=== PATIENT | female | born 1955 | race Caucasian/White ===

== ENCOUNTER → 2017-12-13 13:37 | Outpatient (CLI) | payer OTHER, SELFPAY ==
--- NOTE | 2017-12-13 | DI.MRI.S_ITS ---
PROCEDURE: MR SHOULDER LT WO CON INDICATIONS: LEFT SHOULDER PAIN TECHNIQUE: Noncontrast oblique coronal T2 fast spin echo with fat saturation, oblique sagittal T1 spin echo and T2 fast spin echo with fat saturation, axial T1 spin echo and T2 fast spin echo with fat saturation through the shoulder. COMPARISON: [facility] [place], CR, XR SHOULDER 2+ VIEWS LEFT, 11/15/2017, 15:53. FINDINGS: Image quality: Excellent. Rotator cuff: There is mild T2 signal elevation within the anterior, mid, and posterior supraspinatus tendon at the humeral insertion site, indicating tendinopathy. Small region of superimposed fluid signal intensity involves the bursal surface of the mid/anterior supraspinatus tendon at the humeral insertion site. Subscapularis and teres minor tendons are intact. The supraspinatus, infraspinatus, and subscapularis tendons appear intact throughout. Sagittal images demonstrate no muscle atrophy. Bones and bursae: No bone marrow contusions nor acute fractures. Indentation of the posterior lateral humeral head is present, compatible with remote Hill-Sachs deformity. There is mild acromioclavicular joint degeneration. The acromion demonstrates conventional anatomy, without an os acromiale. A small amount of subacromial-subdeltoid or subcoracoid bursal fluid is present. Capsule and soft tissues: In the absence of intra-articular contrast, the labrum and glenohumeral ligaments appear intact. The long head of the biceps tendon demonstrates normal location and morphology. The rotator interval appears normal, without fibrosis. The coracohumeral ligament is normal in thickness. There is a small glenohumeral joint effusion. Within the medial aspect of the subcoracoid recess, there are 2 adjacent loose bodies measuring roughly 6 mm diameter. IMPRESSION: 1. Remote Hill-Sachs deformity of the humeral head, consistent with remote anteroinferior shoulder dislocation. 2. Supraspinatus tendinopathy with low-grade superimposed partial-thickness bursal surface tearing. No full-thickness rotator cuff tear. 3. Acromioclavicular joint osteoarthritis. 4. Mild subacromial bursitis. 5. Loose bodies within the medial aspect of the subcoracoid recess. Dictated by: Dony Delgado M.D. on 12/14/2017 at 10:23 Approved by: Dony Delgado M.D. on 12/14/2017 at 10:35
== END ==
PROVIDERS: Visit Provider Orthopaedic Surgery
DX: M75.102 Unspecified rotator cuff tear or rupture of left shoulder, not specified as traumatic (principal); M19.012 Primary osteoarthritis, left shoulder; M75.52 Bursitis of left shoulder; M24.012 Loose body in left shoulder
CPT/HCPCS: 73221

== ENCOUNTER → 2019-01-22 11:31 | Outpatient (CLI) | payer OTHER, MEDICAID, SELFPAY ==
--- NOTE | 2019-01-22 | DI.US.S_ITS ---
PROCEDURE: US PERIPH VENOUS LOW EXTREM BI INDICATIONS: LEG SWELLING AND PAIN, R/O DVT TECHNIQUE: Real-time imaging, as well as color and pulse Doppler interrogation, were performed of the deep veins of both legs from the inguinal ligament to the popliteal fossa. COMPARISON: None. FINDINGS: Right: The common femoral, femoral and popliteal veins are normally compressible, and free of intraluminal thrombus. Color and pulse Doppler demonstrate normal phasic intravascular flow. There is normal augmentation response to distal compression maneuver. Left: The common femoral, femoral and popliteal veins are normally compressible, and free of intraluminal thrombus. Color and pulse Doppler demonstrate normal phasic intravascular flow. There is normal augmentation response to distal compression maneuver. IMPRESSION: No deep venous thrombosis identified within either the left or right lower extremities. Dictated by: Alexis Ventura Oleksandr Interpreted: Ras Varela MD on 01/22/2019 at 13:38 Approved by: Ras Varela M.D. on 01/22/2019 at 16:34
== END ==
PROVIDERS: PCP Family Medicine; Visit Provider Family Medicine
DX: M79.89 Other specified soft tissue disorders (principal)
CPT/HCPCS: 93970

== ENCOUNTER → 2021-01-10 10:19 | Outpatient (CLI) | payer MEDICARE, SELFPAY ==
[2021-01-10 10:44] LABS: Bacteria Urine None Seen; RBC Urine None Seen (0-5/HPF); WBC Urine None Seen (0-5/HPF)
[2021-01-10 11:18] LABS: Add Manual Diff / Slide Review NO; Basophils Absolute Auto 0 /uL (0-100); Basophils Percent Auto 0.7 % (0-2); Eosinophils Absolute Auto 200 /uL (0-450); Eosinophils Percent Auto 2.8 % (2-4); Hematocrit 37.6 % (36-46); Hemoglobin 12.6 g/dL (12.0-16.0); Lymphocytes Absolute Auto 1200 /uL (1100-4500); Lymphocytes Percent Auto 18.7 % (25-40); Mean Corpuscular HGB Conc 33.5 % (30-36); Mean Corpuscular Hemoglobin 32.8 PG (26-34); Mean Corpuscular Volume 97.9 fL (80-100); Monocytes Absolute Auto 400 /uL (0-900); Monocytes Percent Auto 6.6 % (3-14); Neutrophils Absolute Auto 4400 /uL (1500-7000); Neutrophils Percent Auto 71.2 % (50-75); Platelet Count 330 X10^3/uL (150-400); Red Blood Cell Count 3.84 X10^6/uL (4.0-5.2); Red Cell Distribution Width 12.9 % (11.6-14.8); White Blood Cell Count 6.2 X10^3/uL (4.5-11.0)
[2021-01-10 11:24] LABS: Hemoglobin A1C% w Est Avg Glu 5.1 % (4.0-6.0)
[2021-01-10 11:31] LABS: BUN Creatinine Ratio 32.4 (6-22); Blood Urea Nitrogen 23 mg/dL (7-17); Calcium 9.2 mg/dL (8.4-10.2); Carbon Dioxide 26 mmol/L (22-32); Chloride 109 mmol/L (98-107); Estimated Glomerular Filt Rate > 60.0 mL/min (>60); Glucose 72 mg/dL (80-110); HEMOLYSIS < 15 (0-50); Potassium 4.3 mmol/L (3.4-5.1); Sodium 141 mmol/L (137-145)
[2021-01-10 12:16] LABS: Appearance Urine UA CLEAR; Bilirubin Urine UA NEGATIVE (NEGATIVE); Color Urine UA YELLOW; Glucose Urine UA NEGATIVE (Negative); Ketones Urine UA NEGATIVE (NEGATIVE); Leukocyte Esterase Urine UA NEGATIVE (NEGATIVE); Nitrite Urine UA NEGATIVE (Negative); Occult Blood Urine UA NEGATIVE (Negative); Protein Urine UA NEGATIVE (Negative); Specific Gravity Urine UA 1.015 (1.000-1.035); Urobilinogen Urine UA 0.2 E.U./dL (0.2)
[2021-01-10 13:05] LABS: Culture Indicated Urine Cult Not Indicated
== END ==
PROVIDERS: PCP Family Medicine; Referring Provider Orthopaedic Surgery; Visit Provider Orthopaedic Surgery
DX: Z01.818 Encounter for other preprocedural examination (principal); R73.9 Hyperglycemia, unspecified; Z01.812 Encounter for preprocedural laboratory examination; N39.0 Urinary tract infection, site not specified
CPT/HCPCS: 36415; 80048; 81001; 83036; 85025; 93005; 93010

== ENCOUNTER → 2021-02-28 08:17 | Outpatient (CLI) | payer MEDICARE, SELFPAY ==
[2021-02-28 22:07] LABS: COVID19 - ORCAS (NP or Nasal) Negative (Negative)
== END ==
PROVIDERS: PCP Family Medicine; Visit Provider Family Medicine
DX: Z20.822 Contact with and (suspected) exposure to COVID-19 (principal)
CPT/HCPCS: C9803; U0003

== ENCOUNTER 2021-03-01 08:42 | Day surgery (SDC) | payer MEDICARE, SELFPAY ==
[2021-02-22 09:38] VITALS: BMI 31.8
[2021-03-01] VITALS (15 sets, daily range): BP systolic 101–162; BP diastolic 31–83; PULSE 56–73; RESP 10–19; TEMP 35.7–36.8; O2SAT 93–99; BMI 31.8
--- NOTE | 2021-03-01 08:40 | DI.RAD.S_ITS ---
PROCEDURE: XR HIP W PEL IF DONE LT 2V INDICATIONS: right GUS TECHNIQUE: AP pelvis and lateral view of the right hip acquired. COMPARISON: [facility], CR, XR PELVIS WITH LATERAL HIP RIGHT, 01/13/2021, 13:49. [facility], CR, XR PELVIS 1-2V, 03/01/2021, 12:57. FINDINGS: Bones: Patient is status post right hip arthroplasty, with hardware components in expected positions. The hip joint appears congruent. The visualized bony structures appear intact. Soft tissues: Overlying postoperative changes are noted. No suspicious soft tissue densities. IMPRESSION: Status post right hip arthroplasty with expected postoperative findings. Dictated by: Chris Rodriguez M.D. on 03/01/2021 at 16:32 Approved by: Chris Rodriguez M.D. on 03/01/2021 at 16:33
[2021-03-01] MEDS: LACTATED RINGERS 1,000 ML 42 ML IV ×2 (09:33→12:35)
[2021-03-01] MEDS: ACETAMINOPHEN 325 MG TABLET 975 MG PO (09:42)
--- NOTE | 2021-03-01 11:05 | P.OP_ITS ---
Operative Date/Time/Diagnoses Date of procedure: 03/01/21 Time of procedure: 11:30 Pre-op diagnosis: Right hip osteoarthritis Post-op diagnosis: same Procedure & Clinicians Procedure: Right total hip arthroplasty posterior approach Same procedure as scheduled: Yes Indications: The patient has had progressively worsening right hip pain with rad iographic changes consistent with arthritis. Non-operative management has failed and the patient has requested total hip replacement. The risks, benefits and alternatives to surgery were discussed with the patient prior to proceeding. Risks discussed included, but were not limited to, failure to relieve pain, leg length discrepancy, dislocation, stiffness, infection, nerve damage, deep venous thrombosis, pulmonary embolism, stroke, coma, heart attack, permanent paralysis and , as well as the potential need for eventual revision of the prosthetic. Surgeon: Daily Rodgers Graphic Designer: Cecelia Grajeda Anesthesia Type: General and Spinal Operative Notes Findings: Severe right hip osteoarthritis, adequate stability, soft bone Closure Type: primary Specimen(s): none sent Prosthetic devices, grafts, tissues, transplants, or devices: Rodgers [employer]hew 52 mm R3 cup, size 9 anthology standard offset, +0 Oxinium head, one 20 mm screw Applied: drain(s) Estimated Blood Loss (mL): 250 Blood products transfused: none Procedure in detail: The patient was seen in the pre-operative area, where the patient identified the right hip as the operative site and this was marked with my initials. The patient received pre-operative antibiotics and was taken to the operating room and placed on the operative table in the left lateral decubitus position after satisfactory anesthesia. A time study engineer out was performed. The right leg was prepared from the ankle to the iliac crest with ChloroPrep in the usual fashion and draped through sterile drapes. The hip was approached through an approximately 20 cm incision centered over the greater trochanter and curving gently posteriorly as it went proximally. This was carried sharply to the fascia ashley, which was divided and retracted with a self retaining retractor. The trochanteric bursa was excised with care being taken to avoid the sciatic nerve, which was identified and protected throughout the case. The short external rotators were incised and the capsulomuscular flap was raised and tagged for later repair. The hip was dislocated, and a femoral neck osteotomy performed approximately 15 mm above the lesser trochanter. Retractors were placed around the femur. The canal was opened with a box cutting osteotome, followed by a T handled reamer and a lateralizing reamer. The chili pepper broach was then used, followed by sequential broaching until there was good stability of the broach in the femur. Retractors were placed to expose the acetabulum. The labrum and central soft tissues were removed. Reaming was performed initially going up in 2 mm increments, then 1 mm increments until good bite was obtained with an odd sized reamer. The cup 1 mm larger than the last reamer was then inserted using the appropriate anteversion guides. A trial neutral liner was placed. The broach was placed in the canal. A trial head and neck were then placed and the hip relocated and checked for leg length and stability. An intraoperative film confirmed the component position and no evidence of fracture. The patient was stable in the position of sleep, of squatting, and could be put through a range of motion with 45 degrees internal rotation without dislocation. At 90 degrees flexion, internal rotation to 70 ? possible before dislocation. This was felt to be satisfactory and the appropriate components were opened, and the trials were removed. The cup was further stabilized with a single screw. The acetabular liner was impacted into position. The final stem was then impacted into the prepared femoral canal. A brief Betadine soak was performed while trialing with head options. The hip was meticulously irrigated with normal saline. Finally the femoral head was impacted onto the stem. The acetabulum was cleared of all material and the hip relocated one final time. The capsulomuscular flap was then repaired to the greater trochanter though an awl hole using the tag sutures. The short external rotators were repaired with a nonabsorbable suture. A deep drain was placed and brought out anteriorly. The fascia ashley was closed with Vicryl. The subcutaneous layer was closed with barbed sutures and SteriStrips. An Aquacel Ag dressing was applied and the patient was taken to recovery having tolerated the procedure well. Complications: none Post-operative Condition: stable Disposition: Acute Care Plan for aftercare: The patient will be maintained on a standard total hip replacement protocol with weight bearing as tolerated and posterior hip precautions. The patient will receive Aspirin and sequential compression devices for DVT prophylaxis. The patient will be discharged home when safe for the home environment.
--- NOTE | 2021-03-01 11:05 | PM.PREOP ---
Pre-operative Note COVID-19 COVID-19 status: Negative Interval Note History & Physical reviewed/Exam performed by Physician: Yes Changes to H&P: No
[2021-03-01] MEDS: PREGABALIN 75 MG CAPSULE PO (11:30)
[2021-03-01] MEDS: CELECOXIB 200 MG CAPSULE PO (11:30)
[2021-03-01] MEDS: VANCOMYCIN 1,000 MG/200 ML PIGGYBACK 200 MG IV (11:45)
--- NOTE | 2021-03-01 11:48 | SUR.OPER ---
Lateral on padded OR bed. Gel axillary roll. Arms secured on padded armboard with pillow supporting top arm. Padded hip positioner braces x4 - anterior and posterior chest and pelvis. Additional gel pad used anterior pelvis. Gel pad under bottom leg from knee to foot and secured with tape over sheet.
[2021-03-01] MEDS: CEFAZOLIN 1 GM VIAL 2 GM IV ×2 (12:00→20:26)
[2021-03-01] MEDS: TRANEXAMIC ACID 1,000 MG VIAL 2000 MG INJ ×2 (12:00→13:31)
[2021-03-01] MEDS: BUPIVACAINE LIPOSOME 266 MG/20 ML VIAL INJ (12:31)
[2021-03-01] MEDS: BUPIVACAINE 0.25% (PF) VIAL 30 ML INJ (12:32)
[2021-03-01] MEDS: EPINEPHrine 1 MG/ML 0.15 MG INJ (12:34)
--- NOTE | 2021-03-01 12:57 | DI.RAD.S_ITS ---
PROCEDURE: XR PELVIS 1-2V INDICATIONS: Intraoperative total hip TECHNIQUE: 1 view of the lower pelvis acquired. COMPARISON: [facility] [place], [place], XR PELVIS WITH LATERAL HIP RIGHT, 01/13/2021, 13:49. FINDINGS: Bones: Patient is status post right hip arthroplasty, with hardware components in expected positions. The hip joint appears congruent. The visualized bony structures appear intact. Soft tissues: Overlying postoperative changes are noted. No suspicious soft tissue densities. IMPRESSION: Right total hip arthroplasty without acute complicating hardware feature identified. Dictated by: Rob Mendez M.D. on 03/01/2021 at 14:46 Approved by: Rob Mendez M.D. on 03/01/2021 at 14:47
--- NOTE | 2021-03-01 13:18 | PC.NURSE ---
Day shift: Pt not on AC unit at this time.
--- NOTE | 2021-03-01 15:07 | SUR.PHASEI ---
report given at bedside to med surg nurse FRAN Barba
[2021-03-01] MEDS: IBUPROFEN 400 MG TABLET PO ×2 (16:09→20:26)
[2021-03-01] MEDS: ACETAMINOPHEN 325 MG TABLET 650 MG PO ×2 (16:09→20:26)
[2021-03-01] MEDS: LACTATED RINGERS 1,000 ML 125 ML IV (16:09)
[2021-03-01] MEDS: DOCUSATE 100 MG CAPSULE PO (20:26)
[2021-03-01] MEDS: ASPIRIN EC 81 MG TABLET PO (20:26)
[2021-03-01] MEDS: QUETIAPINE 100 MG TABLET 400 MG PO (20:26)
[2021-03-01] MEDS: LEVOTHYROXINE 100 MCG TABLET 200 MCG PO (20:27)
[2021-03-01] MEDS: PANTOPRAZOLE DR 20 MG TABLET PO (20:41)
--- NOTE | 2021-03-01 21:21 | PC.NURSE ---
patient given night meds, approx 30-40 min later vomited. not re given
[2021-03-02] MEDS: LACTATED RINGERS 1,000 ML 125 ML IV (00:25)
[2021-03-02] MEDS: PANTOPRAZOLE DR 20 MG TABLET PO (01:49)
[2021-03-02] MEDS: IBUPROFEN 400 MG TABLET PO ×3 (01:49→08:10)
[2021-03-02] MEDS: ONDANSETRON 4 MG/2 ML INJ IV (02:48)
[2021-03-02] MEDS: MAG HYDROX/ALUM/SIMETH 30 ML UDC PO (03:57)
[2021-03-02] MEDS: CEFAZOLIN 1 GM VIAL 2 GM IV (03:57)
--- NOTE | 2021-03-02 04:10 | PC.NURSE ---
This RN was told in report that patient had not voided since arriving to the unit at 1500. WARDROBE TECHNICIAN scanned patients bladder which showed 646cc. This RN had the patient try using the bedpan but the patient was not able to go. Straigth cath was done at 0130 and 1400cc of clear, yellow urine was drained from the bladder. Patient tolerated well. Patient was given Protonix at 2041 by evening shift RN. Patient vomitted shortly after dose and was requesting more from this RN. This RN repeated dose at 0149. Patient was still complaining of reflux and was requesting something more. This RN called oncall provider Dr. Urias at 0325 and telephone orders were given for PO Tums and Maalox. This RN gave patient Maalox at 0359 and will continue to monitor.
[2021-03-02 05:44] VITALS: BP 125/54; PULSE 74; RESP 18; TEMP 36.7; O2SAT 95
[2021-03-02 06:39] LABS: Hematocrit 36.7 % (36-46); Hemoglobin 12.1 g/dL (12.0-16.0)
[2021-03-02 07:20] VITALS: BP 127/61; PULSE 66; RESP 16; TEMP 36.1; O2SAT 94
--- NOTE | 2021-03-02 07:23 | P.DS_ITS ---
History of Present Illness History of Present Illness Date Patient Seen: 03/02/21 Time Patient Seen: 07:24 Chief complaint: Right hip pain status post right GUS Narrative: The patient is complaining of mild hip pain this morning. Her main concern is that she is experiencing new numbness down her right leg and in her right foot. She lives on [facility]. She has not been voiding overnight on her own and needed to be straight cathed. She has not worked with physical therapy yet. She is experiencing some nausea and vomiting. Denies fevers, chills, night sweats. Discharge Providers Provider Discharge Date: 03/02/21 Primary care physician: Duarte Beckwith MD Consults: 03/01/21 08:40 Consult to Anesthesiology Routine Comment: Consulting Provider: Anesthesiologist Reason for consultation: Regional block for post operative pain control 03/01/21 15:15 Consult to Discharge Planning Routine Comment: Consult to Physical Therapy Evaluate & Treat Comment: Physician Instructions: post op GUS protocol Consult to Respiratory Therapy Evaluate & Treat Comment: Physician Instructions: Evaluate and treat Discharge provider: Cecelia Grajeda PA-C Summary Hospital Course Discharge Diagnosis: Right hip osteoarthritis Hospital Course: Procedure: Right total hip arthroplasty posterior approach Same procedure as scheduled: Yes Indications: The patient has had progressively worsening right hip pain with radiographic changes consistent with arthritis. Non-operative management has failed and the patient has requested total hip replacement. The risks, benefits and alternatives to surgery were discussed with the patient prior to proceeding. Risks discussed included, but were not limited to, failure to relieve pain, leg length discrepancy, dislocation, stiffness, infection, nerve damage, deep venous thrombosis, pulmonary embolism, stroke, coma, heart attack, permanent paralysis and , as well as the potential need for eventual revision of the prosthe tic. Surgeon: Daily Rodgers Land [employer] Party Chief: Cecelia Grajeda Anesthesia Type: General and Spinal Operative Notes Findings: Severe right hip osteoarthritis, adequate stability, soft bone Closure Type: primary Specimen(s): none sent Prosthetic devices, grafts, tissues, transplants, or devices: Rodgers [employer]hew 52 mm R3 cup, size 9 anthology standard offset, +0 Oxinium head, one 20 mm screw Applied: drain(s) Estimated Blood Loss (mL): 250 Blood products transfused: none Status at Discharge Cognitive/behavioral status at discharge: oriented Functional status at discharge: uses cane/walker Overall status at discharge: patient is progressing back to baseline Exam Vital Signs (past 8 hours): - 03/01/21 23:32 03/02/21 05:44 Temperature 97.2 F L 98.0 F Pulse Rate 66 74 Respiratory Rate 16 18 Blood Pressure 122/76 125/54 L Pulse Oximetry 97 95 Oxygen Delivery Method Room Air Oxygen Flow Rate 0 Narrative Exam Narrative: 65-year-old female, resting comfortably in bed, no acute distress. Bilateral motor function, she has 4/5 strength with dorsiflexion and plantar flexion in her right leg as compared to her left. She also notes her sensation is decreased in the right lower extremity as compared to her left. Bilateral calves are soft, nontender to palpation. Dressing is clean, dry, intact. Objective Labs Result Diagrams: 03/02/21 06:25 Labs: Laboratory Results - last 24 hr 03/02/21 06:25 Hgb 12.1 Hct 36.7 PFSH Medical History Acid reflux ADD (attention deficit disorder) BCC (basal cell carcinoma), face Bipolar disorder, mixed Hypothyroid Nerve damage (2008) Osteoarthritis Pneumonia (2008) PTSD (post-traumatic stress disorder) Retinal tear of left eye White coat syndrome without diagnosis of hypertension Surgical History History of 2 sections History of bilateral breast implants History of hysterectomy (~2004) History of left cataract extraction Hx of chest tube placement (2008) Hx of tubal ligation (~1985) Social History household members: none Smoking Status: Former smoker alcohol intake: former Discharge Assessment & Plan Assessment and Plan Assessment: Stable status post right total hip arthroplasty Plan of Treatment: -aspirin 81 mg b.i.d. x6 weeks for DVT prophylaxis -continue with current pain regimen including Tylenol, ibuprofen, Oxy as needed -Zofran as needed for nausea -mobilize with PT. Two PT sessions today, before hopefully being discharged home to [facility] -monitor voiding, and the patient was unable to void on her own last night and had to be straight cathed. She will not be able to go home unless she is voiding independently. -possibly home today, after cleared by 2 sessions of PT and voiding appropriately, and hopefully some of the numbness in her right lower extremity has resolved that point. Discharge Plan Discharge Plan Patient Disposition: Home Discharge orders & Medications Discharge Orders: Discharge (Order); Ordered 03/02/21 Ordered By: Cecelia Grajeda Prescriptions: New acetaminophen 500 mg capsule 500 mg PO Q4H MDD Max 6 tabs per day PRN (Reason: pain) Qty: 90 RF: 0 aspirin 81 mg Tablet,Delayed Release (Dr/Ec) 81 mg PO BID PRN (Reason: To prevent blood clots x6 weeks) Qty: 90 RF: 0 docusate sodium 100 mg Capsule 100 mg PO BID PRN (Reason: constipation) Qty: 30 RF: 0 ibuprofen 400 mg Tablet 400 mg PO Q4HR MDD Max 6 tabs per day PRN (Reason: Pain/inflammation) Qty: 90 RF: 0 ondansetron 4 mg Tablet,Disintegrating 4 mg PO Q4HR PRN (Reason: Nausea) Qty: 14 RF: 0 oxycodone 5 mg Tablet 5 mg PO Q3HR PRN (Reason: Pain, Moderate (4-6)) Qty: 30 RF: 0 Continued methylphenidate HCl 20 mg Tablet 20 mg PO BID RF: 0 omeprazole 20 mg Capsule,Delayed Release(Dr/Ec) 20 mg PO DAILY PRN (Reason: Acid Reflux) RF: 0 estradiol 2 mg Tablet 2 mg PO DAILY RF: 0 quetiapine 400 mg Tablet 400 mg PO BEDTIME RF: 0 levothyroxine 200 mcg Capsule 200 mcg PO BEDTIME RF: 0 Discontinued ibuprofen 800 mg Tablet 800 mg PO DAILY PRN (Reason: Pain) RF: 0 acetaminophen 500 mg Tablet 1,000 mg PO DAILY PRN (Reason: Pain) RF: 0 Follow up/Referrals: Duarte Beckwith MD [Primary Care Provider] - Daily Rodgers MD [Physician] - (10-14 days for postoperative visit) Diet/Activity/Treatments Diet: Diet as Tolerated and Regular Activity: -maintain posterior hip precautions -weight bearing as tolerated front wheel walker -continue with home exercises as demonstrated by Physical therapy Cold/Heat Therapy: -use ice as needed for pain/inflammation Other treatments: -aspirin 81 mg twice daily x6 weeks to prevent blood clots -Tylenol 500 mg every 4 hours plus ibuprofen 400 mg every 4 hours for pain -add OxyContin tone 5 mg as needed for moderate to severe pain, use constipation meds as needed Skin/Wound/Dressing Care Report to your healthcare provider any signs of infection, such as:: chills, fever, night sweats, unusual drainage and unusual redness Dressing: -keep dressing in place until postoperative visit -okay to shower after 48 hours -call the office if dressing becomes wet, soiled, saturated Visit Report/Discharge Packet Instructions: DI for Hip Replacement Stand Alone Forms: Surgery Discharge Discharge Data Primary Care Provider: Duarte Beckwith Attending Provider: Daily Rodgers VTE Deep Vein Thrombosis/Pulmonary Embolism Present on Admission: No
[2021-03-02] MEDS: DOCUSATE 100 MG CAPSULE PO (08:10)
[2021-03-02] MEDS: estradioL 1 MG TABLET 2 MG PO (08:10)
[2021-03-02] MEDS: METHYLPHENIDATE 5 MG TABLET 20 MG PO (08:10)
[2021-03-02] MEDS: ASPIRIN EC 81 MG TABLET PO (08:10)
[2021-03-02] MEDS: ACETAMINOPHEN 325 MG TABLET 650 MG PO (08:26)
--- NOTE | 2021-03-02 09:10 | PT.IIE ---
Current Diagnoses Unilateral primary osteoarthritis, right hip (03/01/21) Surgery Performed Operation Date: 03/01/21 10:45 Actual Procedures p Total Hip Arthroplasty(Right) - Daily Rodgers MD Medical History (Last Reviewed 03/02/21 @ 07:26 by Cecelia Grajeda PA-C) Acid reflux ADD (attention deficit disorder) BCC (basal cell carcinoma), face Bipolar disorder, mixed Hypothyroid Nerve damage (2008) Osteoarthritis Pneumonia (2008) PTSD (post-traumatic stress disorder) Retinal tear of left eye White coat syndrome without diagnosis of hypertension Physical Therapy Inpatient Evaluation/Re-Eval M1 PT/OT-IP Prior Functional Status Start: 03/02/21 12:35 Freq: NEEDED Status: Active Protocol: Document 03/02/21 09:10 AB (Rec: 03/02/21 12:49 AB [id number]) Medical Review Prior Functional Status Medical History Reviewed Yes Communication able to make needs known Mobility and Gait pt stated that she is independent with all mobilities and ambulation without AD Social History Household Members none Living Arrangements House Number of Floors (Floors) Two Floors Number of Stairs To Enter/Railing? lives at [facility]; will stay on first level of the house has 5 steps R rail ascending to enter Home Environment High Toilet Home Equipment Front Wheel Walker,Quad Cane Additional Social History Comment pt stated that she has friends /neighbors that can assist her as needed pt stated that she will sponge bathe for now: stated that she has a water trough that she uses to take a bath but will not be using that for now M2 PT-IP Current Condition Start: 03/02/21 12:35 Freq: NEEDED Status: Active Protocol: Document 03/02/21 09:10 AB (Rec: 03/02/21 12:49 AB [id number]) Physical Therapy Current Condition Current Condition Evaluation Date 03/02/21 Treatment Diagnosis s/p R GUS posterior approach; difficulty in walking Onset Date 03/01/21 Precautions Posterior Hip Precautions No Hip Flexion > 90 degrees,No Hip Internal Rotation,No Hip Adduction Weight Bearing Status Weight Bearing Status Weight Bear as Tolerated Allowed Weight Bearing Amount (enter % RLE WBAT or #) (%) M3 PT-IP Subjective Start: 03/02/21 12:35 Freq: NEEDED Status: Active Protocol: Document 03/02/21 09:10 AB (Rec: 03/02/21 12:49 AB [id number]) Subjective Physical Therapy Visit Type Type Initial Evaluation Visit Start Time 09:10 Visit Stop Time 10:20 Total Visit Minutes 70 Number of LEAD VULCANIZING OPERATOR Visits 0 Physical Therapy Visit Comments Patient Comments agreeable to do PT Therapy Pain Assessment Pain Present Pain Present Denied Pain M4 PT-IP Mobility and Gait Start: 03/02/21 12:35 Freq: NEEDED Status: Active Protocol: Document 03/02/21 09:10 (Rec: 03/02/21 12:49 [id number]) PT-Bed Mobility Assessment Supine to Sit Supine to Sit Standby Assistance PT-Transfer Assessment Sit to and From Stand Sit to and from Stand Standby Assistance,Contact Guard Assistance,1 Person Assistance,Use of Upper Extremities Equipment Transfer Assistive Device Gait Belt,Front Wheeled Walker Orthotic/Prosthetic Devices or Brace: No Transfers Transfer Destination Chair,Toilet Transfer Technique ambulated using FWW Transfer Ability Level of Assist Standby Assistance,Contact Guard Assistance,1 Person Assistance,Use of Upper Extremities Comments Mobility Comments educated pt on posterior hip precatuions. completed supine to sit SBA. pt was able to sit on EOB SBA. completed sit to stand CGA and cues and ambulated to the toilet using FWW CGA. pt completed toileting SBA and ambuatled to the sink SBA using FWW and was able to maintain standing using FWW for support SBA while completing handwashing. pt ambulated to the chair using fWW and rested. educated pt on stair climbing techniques. completed sit to stand SBA and ambulated to the stiars ~ 125 ft using FWW SBA to occasional CGA. completed up/down steps holding on to R rail with B hands SBA to CGA and comppleted x 2 sets. pt stated that she is comfortable with doing the stairs. ambulated back to the room using FWW SBA. agreed to sit up on chair. positioned on chair. call light and table placed within reach. educated pt on how to do car transfers. Gait Assessment Gait Gait Assistance Required: Standby Assistance,Contact Guard Assist Distance (Feet) 125 Able to Maintain Weight Bearing Status Yes During Gait Assistive Devices Assistive Device Gait Belt,Front Wheeled Walker Orthotic/Prosthetic Devices or Brace: No Gait Deviations General Gait Pattern Antalgic,Decreased Stride Length,Decreased Feet Clearance Factors Limiting Gait Function Factors Limiting Gait Function Decreased Activity Tolerance, Decreased Strength,Limited Range of Motion,Poor Balance, Poor Safety Awareness Stair Climbing Assessment Evaluation Level of Assist On Stairs Standby Assistance,Contact Guard Assistance Devices Stair Climbing Assistive Devices Right Railing Technique/Endurance Stair Climbing Direction Ascend and Descend Stair Climbing Technique Step to Step Number of Steps Climbed 3 Query Text: Stair Climbing Set # Repetitions (reps) 2 Comments Stair Climbing Comments pls refer to mobility section for details PT-Balance Assessment Sitting Balance and Reactions Static Sitting Balance Ability Good Dynamic Sitting Balance Ability Good Standing Balance and Reactions Static Standing Balance Ability Fair Dynamic Standing Balance Ability Fair Device Used FWW M5 PT-IP Objective Assessments Start: 03/02/21 12:35 Freq: NEEDED Status: Active Protocol: Document 03/02/21 09:10 AB (Rec: 03/02/21 12:49 AB [id number]) Orientation Orientation/Cognition Level of Alertness Alert Orientation Name,Place,Situation Language Function Ability No Deficits Noted Safety Awareness Decreased Safety Awareness Memory Description Short Term Impaired Gross Range of Motion Lower Extremity ROM Assessment Within Functional Limits Strength Lower Extremity Strength Assessment Right Impaired Hip 3+/5 Knee 4-/5 Coordination Assessment Gross Coordination Gross Coordination WNL Sensation Assessment Sensation Gross Sensation Right LE Impaired Sensation Description Numbness Comments Sensation Comments c/o slight numbness on R foot Muscle Tone Muscle Tone WNL Yes M6 PT-IP Treatment Start: 03/02/21 12:35 Freq: NEEDED Status: Active Protocol: Document 03/02/21 09:10 AB (Rec: 03/02/21 12:49 AB [id number]) Physical Therapy Treatment Education Education Provided Precautions,Weight Bearing Status,Post-Op Packet,Safety M7 PT-IP Assessment and Plan Start: 03/02/21 12:35 Freq: NEEDED Status: Active Protocol: Document 03/02/21 09:10 AB (Rec: 03/02/21 12:49 AB [id number]) PT Summary Assessment and Plan Potential Rehabilitation Potential Good Status of Condition at Evaluation Stable Summary Impairments Pain,ROM,Strength,Balance, Coordination,Sensation,Tone, Cognition,Bed Mobility, Transfers,Gait,Activity Tolerance Assessment Summary pt requiring SBA to occasional CGA with mobility. pt plans to go home and will have friends/neighbors wo assist her as needed. pt also has care set up. Goals Bed Mobility Goal Independent Transfer Goal Independent,Front Wheeled Walker Gait Goal Independent,Front Wheel Walker Gait Distance 200 Other Goals up/down 5 steps R rail ascending mod I Days to Meet Goals 3 Frequency of Treatment Frequency Of Treatment Twice a Day Treatment Plan Physical Therapy Treatment Plan Bed Mobility Training,Transfer Training,Gait Training, Therapeutic Exercise,Balance Retraining,Post Op Education, Discharge Planning,Hot or Cold Pack,Neuromuscular Re-ed, Coordination Retraining,Manual Therapy Precautions Posterior Hip Precautions No Hip Flexion > 90 degrees,No Hip Internal Rotation,No Hip Adduction Other Precautions RLE WBAT Recommendations To Nursing Amount of Assist Needed 1 Person Assist Discharge Recommendations PT Discharge Recommendations Home with Assistance,Home Health Transportation Needs at Discharge Private Vehicle
--- NOTE | 2021-03-02 12:50 | PC.NURSE ---
Pt is dressed and ready for discharge home with Friend. IV removed. Pt denies pain. Went over d/c instructions with Pt-discussed d/c meds, time of last dose, reviewed stroke education, s/s of infection, showering, and posterior hip precautions. Pt already has a follow up appointment scheduled. Encouraged Pt to drink plenty of fluids to prevent constipation or dehydration and no driving while on narcotics. Pt denies further question and was taken out via w/c by ASSEMBLER TRACTOR to POV with Friend and all belongings.
--- NOTE | 2021-03-02 13:57 | CM.DANOTE ---
DCP/Assessment: Reviewed chart. Patient is a 65yr old female [facility] right GUS performed on 03-01-21. PCP listed is Duarte Beckwith. Primary payor is 1)[facility]. Met briefly with patient this AM. Therapy in room at time of visit. Patient reports that she hopes to d/c home today. Patient resides on [facility] and will need priority boarding pass. RN updated. No additional needs identified by Orthopedic team. It is anticipated that patient will f/u outpatient for continued therapy. P: Home today. KJS Discharge Planning/Care Management Advanced directive, confirm from FAMILY Start: 03/02/21 02:55 Freq: Q24H Status: Discharge Protocol: Document 03/02/21 02:55 JK (Rec: 03/02/21 03:02 NakitaK [id number]) Advance Directive, confirm on record Time 03:00 Person contacted Patient Copy received No CM Discharge Assessment Start: 03/02/21 13:51 Freq: Status: Active Protocol: Document 03/02/21 13:51 KJS (Rec: 03/02/21 13:57 KJS [id number]) Discharge Planning Assessment Assigned Supervisor Shaving And Splitting ANANDA Terrell Contact Information Kevin Gustafson (son) ph# [phone] Advance Directives? Yes Advance Directives on File No History Provided By Patient,Medical Record Prior Living Arrangements House Household Members none Type of transporation used prior to Drives own vehicle admit Independent with ADL's Yes Is patient alert and oriented? Yes DME Already Rented / Owned FWW / Walker Patient/Family Preference OP PT Therapy Barriers to Discharge No Discharge Plan Home Transportation Arrangement Family/friend to provide transport. Review Status In Process Next Review Type Continued Stay Review Pre-Anesthesia Assessment Start: 02/22/21 09:38 Freq: Status: Complete Protocol: Document 02/22/21 09:38 CAB (Rec: 02/22/21 11:04 CAB [id number]) Pre-Anesthesia Assessment Patient Information Reviewed Via Phone Assessment Assessment Completed With Patient Diagnostic Results BMP/CMP,CBC,EKG,Urinalysis Comment Labs/EKG @ [facility] 01/10/21, COVID screen @ [facility] 02/28/21 Primary Care Provider Duarte Beckwith Seen Specialist in Last 12 Months Yes Specialist Seen Orthopedist Primary Language Canadian Director Of Infection Control Required No Height 168.91 cm Weight 90.718 kg Body Mass Index (BMI) 31.8 Hearing Ability Normal Visual Assist Glasses Dentition Type Partial- Lower Barriers to Learning None Hx Anesthesia Reactions No Hx Family Anesthesia Reaction No Hx Malignant Hyperthermia No Hx Blood Transfusions No Anesthesia Review Requested No Chief Learning Officer Yes: [facility] wants [facility] nurse visits alcohol intake former Alcohol Intake Frequency 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 No Does patient have CORDOVA/SOB Yes: CORDOVA, improving with weight loss Hx Sleep Apnea No Currently Taking a Beta Armin No Can You Climb a Flight of Stairs Without Yes SOB Hx Chest Pain No Hx SOB Yes: CORDOVA, improving with weight loss Hx Syncope or Dizziness No Anti-Coagulant Therapy No Has a Machine Operator Transplanter No Cardiac Testing No Hx Pacemaker/ICD No Pacemaker Rep Required? No Diet Type At Home Regular dysphagia No Gastrointestinal Symptoms Reflux Urinary Catheter Present No Hx Urinary Self Catheterization No Diabetes No Patient No Lactating No Hx Drug Resistant Organism No Presence of External or Internal Medical Yes: Breast implants, left eye Devices IOL Have you had any close contact with No someone diagnosed with COVID-19? Received a COVID vaccine? Yes: Moderna Received all doses? Yes Marital Status Lives With none Prior Living Arrangements House Support System None Does the Patient Have Assistance After No: Pt wants home health nurse Surgery from to come Patient Discharge Plan Description Return Home Comment Pt advised overnight length of stay per surgeon Additional comment Lives on [facility] Feels Safe in Current Environment Yes Been Physically Hurt or Threatened By a No Person in Current Environment Do you have thoughts of harming yourself None or others? Are you currently considering suicide? No Do you have a plan to hurt yourself or No Plan others? Do You Have Any Spiritual Beliefs That No May Affect Your HC Choices? Do You Have Any Cultural Practices That No May Affect Your HC Choices? Who Can We Speak to About Patient's Care Family, friends Identifying Code for Release of Patient Declines to issue Information Health Care Proxy/Next of Kin Kraig (dad) Health Care Proxy Emergency Contact Name Kraig jama) Emergency Contact Advance Directives? Yes Advance Directives on File No Requested Patient Bring Advanced Yes Directives DOS Power of Factory Helper No: Working on currently PAC Instructions Durable medical equipment, Medications to take/avoid, Nasal antibiotic,No ETOH/ petroleum product on skin DOS, NPO,Pre-surgical wash,Sensory aids,Sturdy shoes/comfortable clothes,Do not bring valuables and remove jewelry
== END 2021-03-02 12:53 | disposition home or self-care (01) ==
LOC: OR 08:43 → AC 08:44
PROVIDERS: PCP Family Medicine; Referring Provider Family Medicine; Visit Provider Orthopaedic Surgery
PROC: 0SR90JZ Replacement of Right Hip Joint with Synthetic Substitute, Open Approach (ICD-10-PCS; CPT 27130; principal; 2021-03-01 10:45)
DX: M16.11 Unilateral primary osteoarthritis, right hip (principal); E66.9 Obesity, unspecified; Z68.32 Body mass index [BMI] 32.0-32.9, adult; E03.9 Hypothyroidism, unspecified; K21.9 Gastro-esophageal reflux disease without esophagitis; F43.10 Post-traumatic stress disorder, unspecified; F41.9 Anxiety disorder, unspecified; F31.9 Bipolar disorder, unspecified
CPT/HCPCS: 27130; 36415; 72170; 73502; 85014; 85018; 94762; 97116; 97161; 97530; C1776; C9290; J0171; J0690; J1100; J2274; J2405; J2704

== ENCOUNTER → 2021-10-10 07:06 | Outpatient (CLI) | payer MEDICARE, SELFPAY ==
[2021-03-01 16:17] VITALS: BMI 31.8
[2021-10-10 20:57] LABS: COVID19 - ORCAS (NP or Nasal) Negative (Negative)
== END ==
PROVIDERS: PCP Family Medicine; Visit Provider Family Medicine
DX: Z20.822 Contact with and (suspected) exposure to COVID-19 (principal); Z01.812 Encounter for preprocedural laboratory examination
CPT/HCPCS: C9803; U0003

== ENCOUNTER → 2022-03-09 10:55 | Outpatient (CLI) | payer MEDICARE, SELFPAY ==
[2021-03-01 16:17] VITALS: BMI 31.8
--- NOTE | 2022-03-09 | DI.RAD.S_ITS ---
9PROCEDURE: XR DEXA AXIAL SKELETON INDICATIONS: OSTEOPOROSIS SCREENING/ROUTINE MAMMO COMPARISON: None. FINDINGS: This blank DEXA report has been sent in error by the PACS system. The correct and complete report will be forthcoming in 1-2 days. Thank you for your patience and understanding. Dictated by: Rob Mendez M.D. on 03/15/2022 at 15:07 Approved by: Rob Mendez M.D. on 03/15/2022 at 15:07
--- NOTE | 2022-03-09 | DI.MG.S_ITS ---
BILATERAL DIGITAL SCREENING MAMMOGRAM 3D/2D WITH CAD WITH AUGMENTATION: 03/09/2022 CLINICAL: Routine screening. Family history of breast cancer. Comparison is made to exam dated: 02/16/2021 mammogram - outside facility. Both breasts are almost entirely fatty (category a/<25% glandular tissue). Current study was also evaluated with a Computer Aided Detection (CAD) system. No significant masses, calcifications, or other findings are seen in either breast. There has been no significant interval change. IMPRESSION: NEGATIVE There is no mammographic evidence of malignancy. A 1 year screening mammogram is recommended. Based on the Tyrer Cuzick model (a risk assessment model) the patient's lifetime risk is 4.8% and her 10 year risk is 2.5%. According to the ACR, ACS, and NCCN guidelines, an annual breast MRI exam along with mammogram is recommended if the patient's lifetime risk is 20% or greater. This exam was interpreted at Station ID: [id number]. NOTE: For mammograms, a report in lay terms will be sent to the patient. Approximately 15% of breast malignancies will not be visualized mammographically. In the management of a palpable breast mass, a negative mammogram must not discourage biopsy of a clinically suspicious lesion. Electronically Signed By: Rob Mendez M.D., jr/amarilys:03/09/2022 14:38:51 letter sent: Normal Exam ACR BI-RADS Category 1: Negative [id number]
== END ==
PROVIDERS: PCP Family Medicine; Referring Provider Family Medicine; Visit Provider Family Medicine
DX: Z80.3 Family history of malignant neoplasm of breast; Z12.31 Encounter for screening mammogram for malignant neoplasm of breast; Z13.820 Encounter for screening for osteoporosis; Z78.0 Asymptomatic menopausal state; Z79.890 Hormone replacement therapy; Z90.710 Acquired absence of both cervix and uterus
CPT/HCPCS: 77063; 77067; 77080; 77081; 93010

== ENCOUNTER → 2022-03-09 12:02 | Outpatient (CLI) | payer MEDICARE, SELFPAY ==
[2021-03-01 16:17] VITALS: BMI 31.8
[2022-03-09 12:42] LABS: Blood Urea Nitrogen 20 mg/dL (7-17); Calcium 8.7 mg/dL (8.4-10.2); Carbon Dioxide 29 mmol/L (22-32); Chloride 105 mmol/L (98-107); Estimated Glomerular Filt Rate > 60 mL/min (>60); Glucose 90 mg/dL (80-110); HEMOLYSIS 21 (0-50); Potassium 4.4 mmol/L (3.4-5.1); Sodium 138 mmol/L (137-145)
[2022-03-09 12:46] LABS: Add Manual Diff / Slide Review NO; Basophils Absolute Auto 0 /uL (0-100); Basophils Percent Auto 0.5 % (0-2); Eosinophils Absolute Auto 200 /uL (0-450); Eosinophils Percent Auto 3.1 % (2-4); Hematocrit 36.9 % (36-46); Hemoglobin 12.6 g/dL (12.0-16.0); Lymphocytes Absolute Auto 1100 /uL (1100-4500); Lymphocytes Percent Auto 19.5 % (25-40); Mean Corpuscular HGB Conc 34.2 % (30-36); Mean Corpuscular Hemoglobin 33.4 PG (26-34); Mean Corpuscular Volume 97.4 fL (80-100); Monocytes Absolute Auto 400 /uL (0-900); Monocytes Percent Auto 7.4 % (3-14); Neutrophils Absolute Auto 4100 /uL (1500-7000); Neutrophils Percent Auto 69.5 % (50-75); Platelet Count 307 X10^3/uL (150-400); Red Blood Cell Count 3.79 X10^6/uL (4.0-5.2); Red Cell Distribution Width 12.5 % (11.6-14.8); White Blood Cell Count 5.9 X10^3/uL (4.5-11.0)
[2022-03-09 13:00] LABS: Appearance Urine UA CLEAR; Bilirubin Urine UA NEGATIVE (NEGATIVE); Color Urine UA YELLOW; Glucose Urine UA NEGATIVE (Negative); Ketones Urine UA NEGATIVE (NEGATIVE); Leukocyte Esterase Urine UA 1+ (NEGATIVE); Nitrite Urine UA NEGATIVE (Negative); Occult Blood Urine UA NEGATIVE (Negative); Protein Urine UA NEGATIVE (Negative); Specific Gravity Urine UA <=1.005 (1.000-1.035); Urobilinogen Urine UA 0.2 E.U./dL (0.2)
[2022-03-09 13:42] LABS: RBC Urine None Seen (0-5/HPF); Squamous Epithelial Cell Urine 5-10 /HPF (0-5/HPF); WBC Urine 1-5/HPF (0-5/HPF)
[2022-03-09 13:43] LABS: Bacteria Urine Few (2-10); Culture Indicated Urine Specimen Cultured
== END ==
PROVIDERS: PCP Family Medicine; Referring Provider Orthopaedic Surgery; Visit Provider Orthopaedic Surgery
DX: Z01.818 Encounter for other preprocedural examination (principal); R73.9 Hyperglycemia, unspecified; Z01.812 Encounter for preprocedural laboratory examination; N39.0 Urinary tract infection, site not specified
CPT/HCPCS: 36415; 80048; 81001; 83036; 85025; 87077; 87086; 87147; 93005

== ENCOUNTER → 2022-03-27 07:17 | Outpatient (CLI) | payer MEDICARE, SELFPAY ==
[2021-03-01 16:17] VITALS: BMI 31.8
[2022-03-27 21:05] LABS: COVID19 - ORCAS (NP or Nasal) Negative (Negative)
== END ==
PROVIDERS: PCP Family Medicine; Visit Provider Family Medicine
DX: Z20.822 Contact with and (suspected) exposure to COVID-19 (principal)
CPT/HCPCS: C9803; U0003

== ENCOUNTER 2022-03-28 11:38 | Day surgery (SDC) | payer MEDICARE, SELFPAY ==
[2021-03-01 16:17] VITALS: BMI 31.8
[2022-03-15 09:45] VITALS: BMI 31.8
[2022-03-28] VITALS (11 sets, daily range): BP systolic 121–149; BP diastolic 55–83; PULSE 72–88; RESP 12–19; TEMP 36.1–37; O2SAT 95–99; BMI 31.8
[2022-03-28] MEDS: LACTATED RINGERS 1,000 ML 42 ML IV ×2 (12:30→17:00)
[2022-03-28] MEDS: ACETAMINOPHEN 325 MG TABLET 975 MG PO (12:41)
[2022-03-28] MEDS: VANCOMYCIN 1,000 MG/200 ML PIGGYBACK 200 MG IV (12:43)
--- NOTE | 2022-03-28 13:28 | P.OP_ITS ---
Operative Date/Time/Diagnoses Date of procedure: 03/28/22 Time of procedure: 14:00 Pre-op diagnosis: left hip OA Post-op diagnosis: same Procedure & Clinicians Procedure: Left total hip arthroplasty posterior approach Same procedure as scheduled: Yes Indications: The patient has had progressively worsening left hip pain with radiographic medhat nges consistent with arthritis. Non-operative management has failed and the patient has requested total hip replacement. The risks, benefits and alternatives to surgery were discussed with the patient prior to proceeding. Risks discussed included, but were not limited to, failure to relieve pain, leg length discrepancy, dislocation, stiffness, infection, nerve damage, deep venous thrombosis, pulmonary embolism, stroke, coma, heart attack, permanent paralysis and , as well as the potential need for eventual revision of the prosthetic. Surgeon: Daily Rodgers Nurse Healthcare Manager: Cecelia Grajeda Anesthesia Type: General and Spinal Operative Notes Findings: Severe left hip osteoarthritis, adequate bone, adequate stability Closure Type: primary Specimen(s): none sent Prosthetic devices, grafts, tissues, transplants, or devices: Rodgers [employer] Nephew R3 size 54 cup, size 8 standard offset anthology, neutral poly liner, +0 Oxinium, one 6.5 mm screw Applied: drain(s) Estimated Blood Loss (mL): 250 Blood products transfused: none Procedure in detail: The patient was seen in the pre-operative area, where the patient identified the left hip as the operative site and this was marked with my initials. The patient received pre-operative antibiotics and was taken to the operating room and placed on the operative table in the right lateral decubitus position after satisfactory anesthesia. A assistant manager/embalmer out was performed. The left leg was pr epared from the ankle to the iliac crest with ChloroPrep in the usual fashion and draped through sterile drapes. The hip was approached through an approximately 20 cm incision centered over the greater trochanter and curving gently posteriorly as it went proximally. This was carried sharply to the fascia ashley, which was divided and retracted with a self retaining retractor. The trochanteric bursa was excised with care being taken to avoid the sciatic nerve, which was identified and protected throughout the case. The short external rotators were incised and the capsulomuscular flap was raised and tagged for later repair. The hip was dislocated, and a femoral neck osteotomy performed approximately 15 mm above the lesser trochanter. Retractors were placed around the femur. The canal was opened with a box cutting osteotome, followed by a T handled reamer and a lateralizing reamer. The chili pepper broach was then used, followed by sequential broaching until there was good stability of the broach in the femur. Retractors were placed to expose the acetabulum. The labrum and central soft tissues were removed. Reaming was performed initially going up in 2 mm increments, then 1 mm increments until good bite was obtained with an odd sized reamer. The cup 1 mm larger than the last reamer was then inserted using the appropriate anteversion guides. A trial neutral liner was placed. The broach was placed in the canal. A trial head and neck were then placed and the hip relocated and checked for leg length and stability. An intraoperative film confirmed the component position and no evidence of fracture. The patient was stable in the position of sleep, of squatting, and could be put through a range of motion with 45 degrees internal rotation without dislocation. At 90 degrees flexion, internal rotation to 70? was possible before dislocation. This was felt to be satisfactory and the appropriate components were opened, and the trials were removed. It was further stabilized with a single screw. The acetabular liner was impacted into position. The final stem was then impacted into the prepared femoral canal. A brief Betadine soak was performed while trialing with head op tions. The hip was meticulously irrigated with normal saline. Finally the femoral head was impacted onto the stem. The acetabulum was cleared of all material and the hip relocated one final time. The capsulomuscular flap was then repaired to the greater trochanter though an awl hole using the tag sutures. The short external rotators were repaired with a nonabsorbable suture. A deep drain was placed and brought out anteriorly. The fascia ashley was closed with Vicryl. The subcutaneous layer was closed with barbed sutures and SteriStrips. An Aquacel Ag dressing was applied and the patient was taken to recovery having tolerated the procedure well. Complications: none Post-operative Condition: stable Disposition: Acute Care Plan for aftercare: The patient will be maintained on a standard total hip replacement protocol with weight bearing as tolerated and posterior hip precautions. The patient will receive Aspirin and sequential compression devices for DVT prophylaxis. The patient will be discharged home when safe for the home environment.
--- NOTE | 2022-03-28 13:28 | PM.PREOP ---
Pre-operative Note COVID-19 COVID-19 status: Negative Interval Note History & Physical reviewed/Exam performed by Physician: Yes Changes to H&P: No
[2022-03-28] MEDS: CEFAZOLIN 2 GM/100 ML PREMIX 100 ML IV ×2 (14:20→21:41)
--- NOTE | 2022-03-28 14:30 | DI.RAD.S_ITS ---
PROCEDURE: XR PELVIS 1-2V INDICATIONS: INNER OP TECHNIQUE: Intra-operative view of the pelvis and hip acquired. COMPARISON: [facility] [place], CR, XR PELVIS WITH BILATERAL LATERAL HIPS, 08/12/2021, 14:23. FINDINGS: Bones: Intraoperative devices prior to placement of arthroplasty prostheses are in expected positions. No fractures or suspicious bony lesions. Soft tissues: Overlying surgical retractors are present, along with other intraoperative changes. IMPRESSION: Expected intraoperative alignment during placement of left hip arthroplasty. Dictated by: Alexis Ventura RROleksandr Interpreted: Ramez Rivera MD on 03/28/2022 at 16:36 Transcribed by: SERGEI on 03/28/2022 at 16:37 Approved by: Ramez Rivera M.D. on 03/28/2022 at 19:03
[2022-03-28] MEDS: TRANEXAMIC ACID 1,000 MG VIAL 2000 MG INJ ×2 (14:45→16:34)
[2022-03-28] MEDS: BUPIVACAINE 0.25% (PF) 60 ML, EPINEPHrine 0.3 MG INJ (14:57)
[2022-03-28] MEDS: BUPIVACAINE LIPOSOME 266 MG/20 ML VIAL INJ (14:58)
--- NOTE | 2022-03-28 16:22 | CM.DANOTE ---
DCP/Assessment: Reviewed chart. Patient is a 43yr old male admitted [facility] with left sided abscess. PCP is [facility]. Primary payor is 1)[facility]. Reviewed chart. Met with patient and family explained CM/SW role. Patient reports that he is completely I in all ADL's. Patient does not anticipate any d/c planning needs. Patient currently NPO and anticipated to have I&D? CM team to continue to follow. P: Home when stable. CM team to follow for d/c planning. [facility] Discharge Planning/Care Management CM Discharge Assessment Start: 03/28/22 16:19 Freq: Status: Active Protocol: Document 03/28/22 16:20 [facility] (Rec: 03/28/22 16:22 [facility] [id number]) Discharge Planning Assessment Assigned Central Office Inspector ANANDA Terrell Advance Directives? No Advance Directives on File No History Provided By Patient,Family Member,Medical Record Prior Living Arrangements House Household Members family,none Type of transporation used prior to Drives own vehicle admit Independent with ADL's Yes Is patient alert and oriented? Yes Caregiver for Another Yes: Daughter resides with patient Patient/Family Preference OP PT Therapy Barriers to Discharge No Discharge Plan Home Transportation Arrangement Family/friend to provide transport. Referrals Initiated Other Additional Comment None needed at this time. Whiteboard Updated in Patient Room with Yes name and ext. # of Central Office Inspector Review Status In Process Next Review Type Continued Stay Review Pre-Anesthesia Assessment Start: 03/15/22 09:45 Freq: Status: Active Protocol: Document 03/15/22 09:45 [facility] (Rec: 03/15/22 10:21 [facility] [id number]) Pre-Anesthesia Assessment Preferred Name Saqib Patient Information Reviewed Via Phone Assessment Assessment Completed With Patient Diagnostic Results BMP/CMP,CBC,EKG Comment Labs/ECG @ [facility] 03/09/22, COVID screen @ [facility] 03/27/22 Primary Care Provider Duarte Beckwith Seen Specialist in Last 12 Months Yes Specialist Seen Orthopedist Primary Language Cypriot Preferred Language Cypriot House Rn Required No Height 168.91 cm Weight 90.718 kg Body Mass Index (BMI) 31.8 Hearing Ability Normal Visual Assist Glasses Dentition Type Partial- Upper & Lower Barriers to Learning None Hx Anesthesia Reactions No Hx Family Anesthesia Reaction No Hx Malignant Hyperthermia No Hx Blood Transfusions No Anesthesia Review Requested No alcohol intake former Alcohol Intake Frequency Other: 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 No Does patient have CORDOVA/SOB Yes: CORDOVA, improving with weight loss Hx Sleep Apnea No CPAP/BIPAP use not prescribed Currently Taking a Beta Armin No Can You Climb a Flight of Stairs Without No SOB Hx Chest Pain No Hx SOB Yes: CORDOVA, improving with weight loss Hx Syncope or Dizziness No Anti-Coagulant Therapy No Has a Senior Product Integrity Engineer No Cardiac Testing No Hx Pacemaker/ICD No Pacemaker Rep Required? No Cardiac Clearance Received No Diet Type At Home Regular Dysphagia No Gastrointestinal Symptoms Reflux Urinary Catheter Present No Hx Urinary Self Catheterization No Diabetes No Patient No Lactating No Hx Drug Resistant Organism No Presence of External or Internal Medical Yes: Breast implants, left eye Devices IOL, right hip prosthesis Have you had any close contact with No someone diagnosed with COVID-19? Received a COVID vaccine? Yes: Moderna Received all doses? Yes Marital Status Lives With none Number of Stairs To Enter/Railing? Lives in a [facility] Support System None,Friend(s) Does the Patient Have Assistance After Yes: Pt has neighbors who will Surgery check but not to spend the night Patient Discharge Plan Description Return Home Comment Pt advised overnight length of stay per surgeon Additional comment Lives on [facility] Feels Safe in Current Environment Yes Been Physically Hurt or Threatened By a No Person in Current Environment Do you have thoughts of harming yourself None or others? Are you currently considering suicide? No Do you have a plan to hurt yourself or No Plan others? Do You Have Any Spiritual Beliefs That No May Affect Your HC Choices? Do You Have Any Cultural Practices That No May Affect Your HC Choices? Who Can We Speak to About Patient's Care Family, friends Identifying Code for Release of Patient Declines to issue Information Health Care Proxy/Next of Kin Rola Flaco (Aunt) Health Care Proxy Emergency Contact Name Rola Sam (Aunt) Emergency Contact Advance Directives? No Advance Directives on File No Requested Patient Bring Advanced Yes Directives DOS Power of Rotary Drier No: Working on currently PAC Instructions Do not shave/clip surgical site,Durable medical equipment ,Medications to take/avoid, Nasal antibiotic,No ETOH/ petroleum product on skin DOS, NPO,Post-op transportation,Pre -surgical wash,Sensory aids, Sturdy shoes/comfortable clothes,Do not bring valuables and remove jewelry
--- NOTE | 2022-03-28 17:00 | DI.RAD.S_ITS ---
PROCEDURE: XR HIP W PEL IF DONE LT 2V INDICATIONS: LEFT TOTAL HIP TECHNIQUE: 2 view(s) of the hip acquired. COMPARISON: [facility], CR, XR PELVIS WITH BILATERAL LATERAL HIPS, 08/12/2021, 14:23. [facility], CR, XR PELVIS 1-2V, 03/28/2022, 15:43. [facility], CR, XR HIP W PEL IF DONE LT 2V, 03/01/2021, 14:40. FINDINGS: Bones: Patient is status post left hip arthroplasty, with hardware components in expected positions. The hip joint appears congruent. The visualized bony structures appear intact. A prior right hip arthroplasty is also present, no overt abnormality identified on the single frontal view. Soft tissues: Overlying postoperative changes are noted. No suspicious soft tissue densities. IMPRESSION: Postsurgical changes from left hip arthroplasty. No definite unexpected findings identified. Dictated by: Chris Bernal M.D. on 03/29/2022 at 9:09 Approved by: Chris Bernal M.D. on 03/29/2022 at 9:14
[2022-03-28] MEDS: OXYCODONE/ACETAMINOPHEN 5/325 TABLET 1 TAB PO (17:35)
[2022-03-28] MEDS: ACETAMINOPHEN 325 MG TABLET 650 MG PO (19:32)
[2022-03-28] MEDS: IBUPROFEN 400 MG TABLET PO (19:33)
[2022-03-28] MEDS: LACTATED RINGERS 1,000 ML 125 ML IV (19:37)
--- NOTE | 2022-03-28 19:37 | PC.NURSE ---
Pt arrived from PACU at 1803, settled in to room 210. A&OX3, VSS on RA. She reports pain well controlled still with some numbness to BLE's able to wiggle toes and bend knees. CMS+. She is able to tolerate dinner well w/o nausea/ vomitting. Hemovac with scant out put. TEO dressing C/D/I. ICe pack to L hip.Bed alarm on, call light in reach, continuous monitoring. Awaiting patient to void, endorsed to oncoming RN.
[2022-03-28] MEDS: DOCUSATE 100 MG CAPSULE PO (20:13)
[2022-03-28] MEDS: QUETIAPINE 100 MG TABLET 400 MG PO (20:13)
[2022-03-28] MEDS: ASPIRIN EC 81 MG TABLET PO (20:13)
[2022-03-28] MEDS: OXYCODONE IR 10 MG TABLET PO (20:15)
[2022-03-29] VITALS: BP 121/70; PULSE 69; RESP 18; TEMP 36.2; O2SAT 94
[2022-03-29] MEDS: ACETAMINOPHEN 325 MG TABLET 650 MG PO ×3 (00:55→11:16)
[2022-03-29] MEDS: IBUPROFEN 400 MG TABLET PO ×3 (00:56→11:16)
[2022-03-29] MEDS: OXYCODONE IR 10 MG TABLET PO (03:20)
[2022-03-29] MEDS: LACTATED RINGERS 1,000 ML 125 ML IV (03:33)
[2022-03-29 03:51] VITALS: BP 139/66; PULSE 75; RESP 18; TEMP 36.3; O2SAT 98
[2022-03-29 06:20] LABS: Hematocrit 31.6 % (36-46); Hemoglobin 10.7 g/dL (12.0-16.0)
[2022-03-29] MEDS: LEVOTHYROXINE 100 MCG TABLET 200 MCG PO (06:41)
[2022-03-29] MEDS: CEFAZOLIN 2 GM/100 ML PREMIX 100 ML IV (06:42)
[2022-03-29] MEDS: METHYLPHENIDATE 5 MG TABLET 20 MG PO (07:01)
[2022-03-29] MEDS: DOCUSATE 100 MG CAPSULE PO (08:23)
[2022-03-29] MEDS: OXYCODONE IR 5 MG TABLET PO ×2 (08:23→11:45)
[2022-03-29] MEDS: estradioL 1 MG TABLET PO (08:23)
[2022-03-29] MEDS: ASPIRIN EC 81 MG TABLET PO (08:23)
--- NOTE | 2022-03-29 08:31 | PM.DS.1 ---
History of Present Illness History of Present Illness Date Patient Seen: 03/29/22 Time Patient Seen: 08:32 Chief complaint: Left Total Hip *OPB* Narrative: Operative Date/Time/Diagnoses Date of procedure: 03/28/22 Time of procedure: 14:00 Pre-op diagnosis: left hip OA Post-op diagnosis: same Procedure & Clinicians Procedure: Left total hip arthroplasty posterior approach Same procedure as scheduled: Yes Indications: The patient has had progressively worsening left hip pain with radiographic changes consistent with arthritis. Non-operative management has failed and the patient has requested total hip replacement. The risks, benefits and alternatives to surgery were discussed with the patient prior to proceeding. Risks discussed included, but were not limited to, failure to relieve pain, leg length discrepancy, dislocation, stiffness, infection, nerve damage, deep venous thrombosis, pulmonary embolism, stroke, coma, heart attack, permanent paralysis and , as well as the potential need for eventual revision of the prosthetic. Surgeon: Daily Rodgers Drapery Head Former: Cecelia Grajeda Anesthesia Type: General and Spinal Operative Notes Findings: Severe left hip osteoarthritis, adequate bone, adequate stability Closure Type: primary Specimen(s): none sent Prosthetic devices, grafts, tissues, transplants, or devices: [employer] R3 size 54 cup, size 8 standard offset anthology, neutral poly liner, +0 Oxinium, one 6.5 mm screw Applied: drain(s) Estimated Blood Loss (mL): 250 Blood products transfused: none Discharge Providers Provider Discharge Date: 03/29/22 Primary care physician: Duarte Beckwith MD Consults: 03/28/22 06:00 Consult to Anesthesiology Routine Comment: Consulting Provider: Anesthesiologist Reason for consultation: Regional block for post operative pain control 03/28/22 18:00 Consult to Discharge Planning Routine Comment: Consult to Physical Therapy Evaluate & Treat Comment: Physician Instructions: post op GUS protocol Consult to Respiratory Therapy Evaluate & Treat Comment: Physician Instructions: Evaluate and treat Discharge provider: Celena Montalvo PA-C Summary Hospital Course Discharge Diagnosis: Left hip osteoarthritis s/p left total hip arthroplasty Hospital Course: Ms [place] hospital course was unremarkable. On POD# 1 she was feeling well and wanted to go home. She was eating and voiding without difficulty and her pain was well-controlled with oral medication. She was evaluated by PT prior to discharge. Exam Vital Signs (past 8 hours): - 03/29/22 03:51 Temperature 97.4 F L Pulse Rate 75 Respiratory Rate 18 Blood Pressure 139/66 Pulse Oximetry 98 Oxygen Flow Rate 0 Oxygen Delivery Method Room Air Oxygen Flow Rate 0 Narrative Exam Narrative: 5/5 strength in hip flexors, quadriceps, hamstrings, DF, PF, EHL on left. Sensation to light touch intact throughout LLE. Calves soft, compressible, nontender and without palpable cords or masses. TEO dressing functioning, CDI. Objective Labs Result Diagrams: 03/29/22 05:59 Labs: Laboratory Results - last 24 hr 03/29/22 05:59 Hgb 10.7 L Hct 31.6 L PFSH Medical History (Updated 03/15/22 @ 10:13 by Vanesa Hoover RN) Acid reflux ADD (attention deficit disorder) BCC (basal cell carcinoma), face Bilateral shoulder pain Bipolar disorder, mixed Hypothyroid Nerve damage (2008) Osteoarthritis Pneumonia (2008) PTSD (post-traumatic stress disorder) Retinal tear of left eye White coat syndrome without diagnosis of hypertension Surgical History (Updated 03/15/22 @ 09:53 by Vanesa Hoover RN) History of 2 sections History of bilateral breast implants History of hysterectomy (~2004) History of left cataract extraction History of total replacement of right hip (03/01/21) Hx of chest tube placement (2008) Hx of tubal ligation (~1985) Social History household members: none Smoking Status: Former smoker alcohol intake: former Discharge Assessment & Plan Assessment and Plan Assessment: Left hip osteoarthritis s/p left total hip arthroplasty Plan of Treatment: Discharge home. Pt has postop pain meds, but rx given for ASA 81 mg BID x 6 weeks for VTE prophylaxis. Outpt PT, f/u in office in 2 weeks. Discharge Plan Discharge Plan Patient Disposition: Home Discharge orders & Medications Discharge Orders: Discharge (Order); Ordered 03/29/22 Ordered By: Celena Montalvo Prescriptions: New aspirin 81 mg Tablet,Delayed Release (Dr/Ec) 81 mg PO BID Qty: 90 0RF Continued methylphenidate HCl 20 mg Tablet 20 mg PO BID omeprazole 20 mg Capsule,Delayed Release(Dr/Ec) 20 mg PO DAILY PRN (Reason: Acid Reflux) estradiol 2 mg Tablet 1 mg PO DAILY quetiapine 400 mg Tablet 400 mg PO BEDTIME levothyroxine 200 mcg Capsule 200 mcg PO BEDTIME docusate sodium 100 mg Capsule 100 mg PO BID PRN (Reason: constipation) Qty: 30 0RF naproxen sodium [Aleve] 220 mg Capsule 440 mg PO BEDTIME ibuprofen 400 mg tablet 800 mg PO DAILY PRN (Reason: Pain) Follow up/Referrals: Duarte Beckwith MD [Primary Care Provider] - Daily Rodgers MD [Physician] - As previously scheduled (Follow up with Dr Rodgers on 04/12/2022 @ 2:00 pm at [facility] in [place].) Diet/Activity/Treatments Diet: Diet as Tolerated Activity: Weight bearing as tolerated to left leg. Posterior hip precautions. Cold/Heat Therapy: Ice to hip as needed for pain. Skin/Wound/Dressing Care Report to your healthcare provider any signs of infection, such as:: chills, fever, night sweats, unusual drainage and unusual redness Dressing: May shower with TEO dressing; try to keep battery pack out of direct shower spray. Batteries will in 5-7 days, at which point you can cut the cord and dispose of battery pack. Leave TEO dressing in place until follow up appointment. Visit Report/Discharge Packet Instructions: DI for Hip Replacement Stand Alone Forms: Surgery Discharge Discharge Data Primary Care Provider: Duarte Beckwith Attending Provider: Daily Rodgers Quality VTE Deep Vein Thrombosis/Pulmonary Embolism Present on Admission: No
[2022-03-29 08:37] VITALS: BP 154/97; PULSE 96; RESP 18; TEMP 36.7; O2SAT 100
[2022-03-29] MEDS: PANTOPRAZOLE DR 20 MG TABLET PO (08:51)
--- NOTE | 2022-03-29 09:15 | PT.IIE ---
Current Diagnoses Unilateral primary osteoarthritis, left hip (03/28/22) Surgery Performed Operation Date: 03/28/22 14:15 Actual Procedures p Total Hip Arthroplasty(Left) - Daily Rodgers MD Surgical History (Last Updated 03/15/22 @ 09:53 by Vanesa Hoover, RN) History of 2 sections History of bilateral breast implants History of hysterectomy (~2004) History of left cataract extraction History of total replacement of right hip (03/01/21) Hx of chest tube placement (2008) Hx of tubal ligation (~1985) Medical History (Last Updated 03/15/22 @ 10:13 by Vanesa Hoover, FRAN) Acid reflux ADD (attention deficit disorder) BCC (basal cell carcinoma), face Bilateral shoulder pain Bipolar disorder, mixed Hypothyroid Nerve damage (2008) Osteoarthritis Pneumonia (2008) PTSD (post-traumatic stress disorder) Retinal tear of left eye White coat syndrome without diagnosis of hypertension Physical Therapy Inpatient Evaluation/Re-Eval M1 PT/OT-IP Prior Functional Status Start: 03/29/22 12:46 Freq: NEEDED Status: Active Protocol: Document 03/29/22 09:15 AB (Rec: 03/29/22 13:01 [email or web address]) Medical Review Prior Functional Status Communication ablet o make needs known Mobility and Gait pt stated that she is independent with all mobilities and ambulation without AD Social History Household Members none Living Arrangements House Number of Floors (Floors) Two Floors Number of Stairs To Enter/Railing? pt stays on the main level of the house has 5 steps with R rail ascending to enter the house Home Environment High Toilet,Tub/Shower Home Equipment Front Wheel Walker,Quad Cane Additional Social History Comment pt stated that she has steps to get to the shower but plans to do just sponge bathing for now pt stated that she has neighbors that she can ask for assistance if needed M2 PT-IP Current Condition Start: 03/29/22 12:46 Freq: NEEDED Status: Active Protocol: Document 03/29/22 09:15 AB (Rec: 03/29/22 13:01 AB [email or web address]) Physical Therapy Current Condition Current Condition Evaluation Date 03/29/22 Treatment Diagnosis s/p L GUS posterior approach; difficulty in walking Onset Date 03/28/22 M3 PT-IP Subjective Start: 03/29/22 12:46 Freq: NEEDED Status: Active Protocol: Document 03/29/22 09:15 AB (Rec: 03/29/22 13:01 [id number]) Subjective Physical Therapy Visit Type Type Initial Evaluation Visit Start Time 09:15 Visit Stop Time 10:10 Total Visit Minutes 55 Number of LOG DRIVER Visits 0 Physical Therapy Visit Comments Patient Comments agreeable to do PT Therapy Pain Assessment Pain When Pain Assessed At Rest Pain Present Pain Present Pain Reported Location Left Hip Intensity 3 Scale Used Numeric (0 - 10) Pain Management Techniques Distraction,Elevation, Modification of Treatment,Re- positioning,Timing of Activity with Medications M4 PT-IP Mobility and Gait Start: 03/29/22 12:46 Freq: NEEDED Status: Active Protocol: Document 03/29/22 09:15 AB (Rec: 03/29/22 13:01 [id number]) PT-Bed Mobility Assessment Supine to Sit Supine to Sit Standby Assistance Sit to Supine Sit to Supine Standby Assistance PT-Transfer Assessment Sit to and From Stand Sit to and from Stand Standby Assistance,Contact Guard Assistance,1 Person Assistance,Use of Upper Extremities Equipment Transfer Assistive Device Gait Belt,Front Wheeled Walker Orthotic/Prosthetic Devices or Brace: No Transfers Transfer Destination Chair Transfer Technique ambulated Transfer Ability Level of Assist Standby Assistance,Contact Guard Assistance,1 Person Assistance,Use of Upper Extremities Comments Mobility Comments educated pt regarding posterior hip precautions. Pt initially requiring cues but able to recall afterwards. completed supine to sit SBA and cues needed initially. Repeated x 3 and able to complete without cues. completed sit to stand CGA with first attempted. educated on techniques and completed x3 requiring SBA. pt ambulated in room using FWW 10 ft CGA and sat on chair. pt agreed to do stairs. completed sit to stand SBA and ambulated ~ 125 ft using FWW SBA. educated on stair climbing technique and completed up/ down 3 steps using R rail ascending with cues on first set but able to complete without cues on 2nd set. pt ambulated back to her room using FWW 125 ft SBA. pt sat on the chair and positioned. call light and table placed within reach. Gait Assessment Gait Gait Assistance Required: Standby Assistance,Contact Guard Assist Distance (Feet) 125 Able to Maintain Weight Bearing Status Yes During Gait Assistive Devices Assistive Device Gait Belt,Front Wheeled Walker Orthotic/Prosthetic Devices or Brace: No Gait Deviations General Gait Pattern Antalgic,Decreased Stride Length,Decreased Feet Clearance,Step-to Gait Factors Limiting Gait Function Factors Limiting Gait Function Decreased Activity Tolerance, Decreased Strength,Limited Range of Motion,Pain,Poor Balance,Poor Safety Awareness Stair Climbing Assessment Evaluation Level of Assist On Stairs Standby Assistance Devices Stair Climbing Assistive Devices Right Railing Technique/Endurance Stair Climbing Direction Ascend and Descend Stair Climbing Technique Step to Step Number of Steps Climbed 3 Query Text: Stair Climbing Set # Repetitions (reps) 2 PT-Balance Assessment Sitting Balance and Reactions Static Sitting Balance Ability Normal Dynamic Sitting Balance Ability Normal Standing Balance and Reactions Static Standing Balance Ability Good Dynamic Standing Balance Ability Fair Device Used FWW M5 PT-IP Objective Assessments Start: 03/29/22 12:46 Freq: NEEDED Status: Active Protocol: Document 03/29/22 09:15 [facility] ([facility]22 [email or web address] Orientation Orientation/Cognition Level of Alertness Alert Orientation Name,Place,Situation Language Function Ability No Deficits Noted Safety Awareness Decreased Safety Awareness Memory Description Short Term Impaired Gross Range of Motion Lower Extremity ROM Assessment Within Functional Limits Strength Lower Extremity Strength Assessment Left Impaired Hip 3+/5 Knee 4-/5 Coordination Assessment Gross Coordination Gross Coordination WNL Sensation Assessment Sensation Gross Sensation WNL Muscle Tone Muscle Tone WNL Yes M6 PT-IP Treatment Start: 03/29/22 12:46 Freq: NEEDED Status: Active Protocol: Document 03/29/22 09:15 AB (Rec: 03/29/22 13:01 [email or web address]) Physical Therapy Treatment Exercises Exercises Heel Slides Education Education Provided Precautions,Weight Bearing Status,Post-Op Packet,Safety M7 PT-IP Assessment and Plan Start: 03/29/22 12:46 Freq: NEEDED Status: Active Protocol: Document 03/29/22 09:15 AB (Rec: 03/29/22 13:[email or web address] PT Summary Assessment and Plan Potential Rehabilitation Potential Good Status of Condition at Evaluation Stable Summary Impairments Pain,ROM,Strength,Balance, Coordination,Sensation,Tone, Cognition,Bed Mobility, Transfers,Gait,Activity Tolerance Assessment Summary pt requiring SBA with mobility using FWW and stated that her friend will drive her to her outpt PT appointments. pt may go home when medically stable . Goals Bed Mobility Goal Independent Transfer Goal Independent,Front Wheeled Walker Gait Goal Independent,Front Wheel Walker Gait Distance 250 Other Goals up/down 5 steps R rail ascending mod I Days to Meet Goals 5 Frequency of Treatment Frequency Of Treatment Twice a Day Treatment Plan Physical Therapy Treatment Plan Bed Mobility Training,Transfer Training,Gait Training, Therapeutic Exercise,Balance Retraining,Post Op Education, Discharge Planning,Hot or Cold Pack,Neuromuscular Re-ed, Coordination Retraining,Manual Therapy Precautions Posterior Hip Precautions No Hip Flexion > 90 degrees,No Hip Internal Rotation,No Hip Adduction Weight Bearing Status Weight Bearing Status Weight Bear as Tolerated Allowed Weight Bearing Amount (enter % LLE WBAT or #) (%) Recommendations To Nursing Amount of Assist Needed Standby Assistance Discharge Recommendations PT Discharge Recommendations Home with Assistance, Outpatient PT Transportation Needs at Discharge Private Vehicle
--- NOTE | 2022-03-29 10:56 | PC.NURSE ---
Pt is dressed and ready for discharge home with friend. IV has been removed. Went over d/c instructions with Pt-discussed d/c meds, time of last dsoe, reviewed stroke education, s/s of infection, TEO dsg, no driving while on narcotics, do not exceed 3000mg of Acetaminophen in 24hrs, posterior hip precautions and follow up appointment. Pt denies further questions and plans to call a taxi to take [place] the [place] for transport via boat by a friend to [facility].
--- NOTE | 2022-03-29 11:02 | CM.DANOTE ---
DCP: Case received, EMR reviewed and met with patient. Introduced self and role. Was able to obtain information regarding patient's baseline activity status prior to her surgery, as well as her current living situation. DCP assessment completed with information currently available. Patient is a 66 year old female who admitted yesterday morning to the care of the orthopedic team. PCP: Dr. Beckwith. Payer: confirmed: [facility]. Patient came to the hospital via private vehicle for a surgical procedure. She had left total hip arthroplasty posterior surgery. Patient has history of osteoarthritis. Met with patient in her room. She was sitting up in her chair, alert and oriented. She is pleasant, and resides in [place], on [facility] alone. She stated that at her baseline, she is very active, chops wood. She uses no DME at baseline. She has neighbors that will be checking on her when she goes home. She is also going home on a friend's private boat. P: Patient is discharging home today, will pursue outpatient P.T. Elba Urias RN/Chief Nursing Officer Discharge Planning/Care Management CM Discharge Assessment Start: 03/28/22 16:19 Freq: Status: Active Protocol: Document 03/28/22 16:20 KJS (Rec: 03/28/22 16:22 KJS [id number]) Discharge Planning Assessment Household Members none Caregiver for Another Daughter resides with patient Referrals Initiated Other Document 03/29/22 11:01 (Rec: 03/29/22 11:02 [id number]) Discharge Planning Assessment Assigned Learning And Development Assistant Elba Urias RN/Chief Nursing Officer Advance Directives? No Advance Directives on File No History Provided By Patient,Medical Record Prior Living Arrangements House Household Members none Type of transporation used prior to Drives own vehicle admit Independent with ADL's Yes Is patient alert and oriented? Yes Caregiver for Another No: Daughter resides with patient Patient/Family Preference OP PT Therapy Barriers to Discharge No Discharge Plan Home Transportation Arrangement Family/friend to provide transport. Referrals Initiated None needed Whiteboard Updated in Patient Room with Yes name and ext. # of Learning And Development Assistant Review Status In Process Next Review Type Continued Stay Review Pre-Anesthesia Assessment Start: 03/15/22 09:45 Freq: Status: Complete Protocol: Document 03/15/22 09:45 CAB (Rec: 03/15/22 10:21 CAB [id number]) Pre-Anesthesia Assessment Preferred Name Saqib Patient Information Reviewed Via Phone Assessment Assessment Completed With Patient Diagnostic Results BMP/CMP,CBC,EKG Comment Labs/ECG @ 03/09/22, COVID screen @ [facility] 03/27/22 Primary Care Provider Duarte Beckwith Seen Specialist in Last 12 Months Yes Specialist Seen Orthopedist Primary Language Filipino Preferred Language Filipino Freelance Operator Required No Height 5 ft 6.5 in Weight 200 lb Body Mass Index (BMI) 31.8 Hearing Ability Normal Visual Assist Glasses Dentition Type Partial- Upper & Lower Barriers to Learning None Hx Anesthesia Reactions No Hx Family Anesthesia Reaction No Hx Malignant Hyperthermia No Hx Blood Transfusions No Anesthesia Review Requested No alcohol intake former Alcohol Intake Frequency Other: 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 No Does patient have CORDOVA/SOB Yes: CORDOVA, improving with weight loss Hx Sleep Apnea No CPAP/BIPAP use not prescribed Currently Taking a Beta Armin No Can You Climb a Flight of Stairs Without No SOB Hx Chest Pain No Hx SOB Yes: CORDOVA, improving with weight loss Hx Syncope or Dizziness No Anti-Coagulant Therapy No Has a Certified Ophthalmic Technologist No Cardiac Testing No Hx Pacemaker/ICD No Pacemaker Rep Required? No Cardiac Clearance Received No Diet Type At Home Regular Dysphagia No Gastrointestinal Symptoms Reflux Urinary Catheter Present No Hx Urinary Self Catheterization No Diabetes No Patient No Lactating No Hx Drug Resistant Organism No Presence of External or Internal Medical Yes: Breast implants, left eye Devices IOL, right hip prosthesis Have you had any close contact with No someone diagnosed with COVID-19? Received a COVID vaccine? Yes: Moderna Received all doses? Yes Marital Status Lives With none Number of Stairs To Enter/Railing? Lives in a [facility] Support System None,Friend(s) Does the Patient Have Assistance After Yes: Pt has neighbors who will Surgery check but not to spend the night Patient Discharge Plan Description Return Home Comment Pt advised overnight length of stay per surgeon Additional comment Lives on [facility] Feels Safe in Current Environment Yes Been Physically Hurt or Threatened By a No Person in Current Environment Do you have thoughts of harming yourself None or others? Are you currently considering suicide? No Do you have a plan to hurt yourself or No Plan others? Do You Have Any Spiritual Beliefs That No May Affect Your HC Choices? Do You Have Any Cultural Practices That No May Affect Your HC Choices? Who Can We Speak to About Patient's Care Family, friends Identifying Code for Release of Patient Declines to issue Information Health Care Proxy/Next of Kin Rola Sam (Aunt) Health Care Proxy Emergency Contact Name Rola Sam (Aunt) Emergency Contact Advance Directives? No Advance Directives on File No Requested Patient Bring Advanced Yes Directives DOS Power of Analytic Manager No: Working on currently PAC Instructions Do not shave/clip surgical site,Durable medical equipment ,Medications to take/avoid, Nasal antibiotic,No ETOH/ petroleum product on skin DOS, NPO,Post-op transportation,Pre -surgical wash,Sensory aids, Sturdy shoes/comfortable clothes,Do not bring valuables and remove jewelry
== END 2022-03-29 12:19 | disposition home or self-care (01) ==
LOC: OR 11:40 → AC 11:40
PROVIDERS: PCP Family Medicine; Referring Provider Orthopaedic Surgery; Visit Provider Orthopaedic Surgery
PROC: 0SRB0JZ Replacement of Left Hip Joint with Synthetic Substitute, Open Approach (ICD-10-PCS; CPT 27130; principal; 2022-03-28 14:15)
DX: M16.12 Unilateral primary osteoarthritis, left hip (principal); Z96.641 Presence of right artificial hip joint; E03.9 Hypothyroidism, unspecified; F41.9 Anxiety disorder, unspecified
CPT/HCPCS: 27130; 36415; 72170; 73502; 85014; 85018; 97161; 97530; C1776; C9290; J0171; J0690; J1100; J2250; J2405; J2704; J3010

== ENCOUNTER → 2022-07-10 10:54 | Outpatient (CLI) | payer MEDICARE, SELFPAY ==
[2022-03-28 18:29] VITALS: BMI 31.8
[2022-07-10 12:29] LABS: Add Manual Diff / Slide Review NO; Basophils Absolute Auto 0 /uL (0-100); Basophils Percent Auto 0.5 % (0-2); Eosinophils Absolute Auto 100 /uL (0-450); Eosinophils Percent Auto 2.4 % (2-4); Hematocrit 40.5 % (36-46); Hemoglobin 13.6 g/dL (12.0-16.0); Lymphocytes Absolute Auto 1000 /uL (1100-4500); Lymphocytes Percent Auto 16.3 % (25-40); Mean Corpuscular HGB Conc 33.6 % (30-36); Mean Corpuscular Hemoglobin 31.8 PG (26-34); Mean Corpuscular Volume 94.6 fL (80-100); Monocytes Absolute Auto 300 /uL (0-900); Neutrophils Absolute Auto 4500 /uL (1500-7000); Neutrophils Percent Auto 75.8 % (50-75); Platelet Count 295 X10^3/uL (150-400); Red Blood Cell Count 4.28 X10^6/uL (4.0-5.2); White Blood Cell Count 5.9 X10^3/uL (4.5-11.0)
[2022-07-10 13:01] LABS: Appearance Urine UA CLEAR; Bilirubin Urine UA NEGATIVE (NEGATIVE); Color Urine UA YELLOW; Glucose Urine UA NEGATIVE (Negative); Ketones Urine UA NEGATIVE (NEGATIVE); Leukocyte Esterase Urine UA 1+ (NEGATIVE); Nitrite Urine UA NEGATIVE (Negative); Occult Blood Urine UA NEGATIVE (Negative); Protein Urine UA NEGATIVE (Negative); Specific Gravity Urine UA <=1.005 (1.000-1.035); Urobilinogen Urine UA 0.2 E.U./dL (0.2)
[2022-07-10 13:02] LABS: Hemoglobin A1C% w Est Avg Glu 5.1 % (4.0-6.0)
[2022-07-10 13:04] LABS: Blood Urea Nitrogen 20 mg/dL (7-17); Calcium 9.1 mg/dL (8.4-10.2); Carbon Dioxide 27 mmol/L (22-32); Chloride 102 mmol/L (98-107); Estimated Glomerular Filt Rate > 60 mL/min (>60); Glucose 78 mg/dL (80-110); HEMOLYSIS < 15 (0-50); Potassium 4.1 mmol/L (3.4-5.1); Sodium 138 mmol/L (137-145)
[2022-07-10 13:05] LABS: Bacteria Urine None Seen; Culture Indicated Urine Specimen Cultured; RBC Urine None Seen (0-5/HPF); WBC Urine 1-5/HPF (0-5/HPF)
--- NOTE | 2022-07-10 15:09 | DI.CT.S_ITS ---
PROCEDURE: CT UE LT WO CON INDICATIONS: PRIMARY OSTEOARTHRITIS, LEFT SHOULDER TECHNIQUE: Noncontrast 1-1.5 mm thick sections acquired from the acromioclavicular joint to the inferior scapula, with coronal and sagittal reformatting. COMPARISON: None. FINDINGS: Image quality: Excellent. Bones: Moderate acromioclavicular joint osteoarthritic changes are seen with joint space narrowing, subchondral sclerosis and downward osteophyte formation depressing on musculotendinous junction of supraspinatus. Moderate to severe glenohumeral joint osteoarthritic changes also seen with joint space narrowing, subchondral sclerosis and prominent inferior marginal osteophyte formation. There is no fracture or dislocation. No suspicious bony lesions. Visualized left upper ribs are grossly intact. 4 mm calcification is noted in the region of subcoracoid bursa. Soft tissues: There is no full-thickness rotator cuff tendon rupture. No significant muscle atrophy is seen on sagittal images. Small to moderate amount of glenohumeral joint effusion and subacromial subdeltoid bursal fluid is seen. There are suggestion of multiple loose bodies in inferior aspect of glenohumeral joint measures up to 8 mm in size. No other abnormal soft tissue calcifications are seen. IMPRESSION: 1. Moderate acromioclavicular joint osteoarthritis and moderate to severe glenohumeral joint osteoarthritis. No shoulder fracture or dislocation. No suspicious bony lesions. 2. No full-thickness rotator cuff tendon rupture. No significant muscle atrophy. 3. Suggestion of intra-articular loose bodies in inferior aspect of glenohumeral joint. There is also suggestion of a small loose body within subcoracoid bursa. Dictated by: Ras Varela M.D. on 07/10/2022 at 16:31 Approved by: Ras Varela M.D. on 07/10/2022 at 16:39
== END ==
PROVIDERS: PCP Family Medicine; Referring Provider Orthopaedic Surgery; Visit Provider Orthopaedic Surgery
DX: Z01.818 Encounter for other preprocedural examination (principal); M19.012 Primary osteoarthritis, left shoulder; Z01.812 Encounter for preprocedural laboratory examination; R73.9 Hyperglycemia, unspecified; N39.0 Urinary tract infection, site not specified
CPT/HCPCS: 36415; 73200; 80048; 81001; 83036; 85025; 87086; 93005; 93010

== ENCOUNTER 2022-08-18 08:52 | Inpatient (IN) | payer MEDICARE, SELFPAY ==
[2022-03-28 18:29] VITALS: BMI 31.8
[2022-07-26 12:52] VITALS: BMI 33.0
[2022-08-18] VITALS (12 sets, daily range): BP systolic 80–154; BP diastolic 59–93; PULSE 71–87; RESP 11–18; TEMP 36.2–36.8; O2SAT 91–98; BMI 33.0
[2022-08-18 10:22] LABS: COVID19 -Nasal RAPID Negative (Negative)
[2022-08-18] MEDS: LACTATED RINGERS 1,000 ML 42 ML IV ×2 (10:35→15:34)
--- NOTE | 2022-08-18 12:44 | PM.HP.1 ---
History of Present Illness History of Present Illness Date Patient Seen: 08/18/22 Time Patient Seen: 12:44 Chief complaint: TSA Left Narrative: Patient presents with chronic left shoulder pain. She was seen previously in clinic where imaging was obtained as well as an exam which demonstrated left shoulder glenohumeral arthritis. She is had no changes in her symptoms since I last saw her in fact she states her symptoms are getting worse. Patient History Medical History (Updated 03/15/22 @ 10:13 by Vanesa Hoover RN) Acid reflux ADD (attention deficit disorder) BCC (basal cell carcinoma), face Bilateral shoulder pain Bipolar disorder, mixed Hypothyroid Nerve damage (2008) Osteoarthritis Pneumonia (2008) PTSD (post-traumatic stress disorder) Retinal tear of left eye White coat syndrome without diagnosis of hypertension Surgical History (Updated 07/26/22 @ 13:01 by Vanesa Hoover RN) History of 2 sections History of bilateral breast implants History of hysterectomy (~2004) History of left cataract extraction History of total left hip replacement (03/28/22) History of total replacement of right hip (03/01/21) Hx of chest tube placement (2008) Hx of tubal ligation (~1985) Family & Social History Social History: household members none Safety & Behavioral: Feels Safe in Current Yes Environment Been Physically Hurt or No Threatened By a Person Suicidal Ideation Description None Suicide Plan Description No Plan Tobacco & Substance use: Tobacco type cigarettes Smoking Status Former smoker alcohol intake former Substance Use Type does not use Meds Home Medications and Allergies Home Medications Medication Instructions Recorded Confirmed Type estradiol 2 mg tablet 1 mg PO DAILY 02/22/21 07/26/22 History levothyroxine 200 mcg capsule 200 mcg PO BEDTIME 02/22/21 07/26/22 History methylphenidate HCl 20 mg tablet 20 mg PO BID Bipolar, ADD 02/22/21 07/26/22 History omeprazole 20 mg capsule,delayed 20 mg PO DAILY PRN Acid Reflux 02/22/21 07/26/22 History release ibuprofen 400 mg tablet 800 mg PO DAILY PRN Pain 03/15/22 07/26/22 History quetiapine 400 mg tablet,extended 600 mg PO BEDTIME 08/02/22 08/02/22 History release 24 hr Allergies Allergy/AdvReac Type Severity Reaction Status Date / Time Sulfa (Sulfonamide AdvReac Severe I get Verified 03/28/22 13:13 Antibiotics) delirious Review of Systems Review of Systems ROS: Yes All systems reviewed with the patient and are negative except as otherwise documented Exam Vital Signs (past 8 hours): - 08/18/22 10:32 Temperature 97.1 F L Pulse Rate 72 Respiratory Rate 16 Blood Pressure 154/68 H Pulse Oximetry 98 Oxygen Delivery Method Room Air Oxygen Delivery Method Room Air Narrative Exam Narrative: HEENT: Head atraumatic eyes anicteric moist mucous membranes Cardiovascular: Palpable peripheral pulses extremities are warm and well perfused Respiratory: Breathing comfortably on room air Psychiatric: Appropriate mood and affect Neuro: No acute deficits Musculoskeletal: Limited range of motion of the left shoulder as noted in my note. Sensation intact throughout. 2+ radial pulse with brisk capillary refill less than 2 seconds. Objective Labs Labs: Laboratory Results - last 24 hr 08/18/22 10:00 SARS-CoV-2 (PCR) Negative Assessment & Plan Assessment & Plan narrative: Assessment: 67-year-old female with left shoulder glenohumeral arthritis Plan: Discussed reverse total shoulder arthroplasty again and all the risks and benefits. She wished to move forward with surgery.
[2022-08-18] MEDS: TRANEXAMIC ACID 1,000 MG VIAL 1000 MG INJ (13:35)
[2022-08-18] MEDS: CEFAZOLIN 2 GM/100 ML PREMIX 100 ML IV ×2 (13:38→21:59)
--- NOTE | 2022-08-18 13:51 | P.PCN_ITS ---
Peripheral Nerve Block Note Pre-Procedure Reason for block: Attending surgeon request/order for post-op pain management Pre-procedure checklist: Patient examined and chart reviewed, Risks, benefits, alternatives of block discussed, questions answered, Verification of anti- coagulation status, Site confirmed, Timeout performed and Standard ASA monitors applied Consent obtained from: Patient Procedure Date of procedure: 08/18/22 Start Time: 13:01 End Time: 13:11 Performed by: Kraig Cheung Sedation - enter dose in comment field: IV Midazolam (mg) (1) and IV Fentanyl (mcg) (50) Location: Pre-Op Position: Supine Laterality: Left Sterile Technique: Sterile barrier maintained, Sterile gloves, Mask, U/S probe cover and Chloraprep Skin Wheal: Lidocaine 2% mL: 1 Gauge: 30 Equipment Single injection - Needle brand, gauge, length: Pajunc 22g x 50mm Medications Medications - enter concentration (%) & mL in comment field: Ropivacaine (0.5% 15mL) and Lidocaine (2% 5mL) Incremental aspiration prior to injection: Yes Ultrasound Reason for Ultrasound: U/S guidance used for needle placement and U/S used to visualize spread of anesthetic Image printed/saved/archived: Yes Limited exam reveals no abnormal findings: Yes Vital signs VS: - 08/18/22 10:32 Temperature 97.1 F L Pulse Rate 72 Respiratory Rate 16 Blood Pressure 154/68 H Pulse Oximetry 98 Oxygen Delivery Method Room Air Oxygen Delivery Method Room Air Events Nerve Block Events: Procedure uneventful
--- NOTE | 2022-08-18 13:53 | SUR.OPER ---
Beach chair with Schlein shoulder positioner. Lower body on padded OR bed. Head in foam padded head cradle, secured with straps. Non-operative arm secured <90 degrees abduction. Pillow under knees. Safety belt at thigh. Cloth tape over blanket over lower legs.
[2022-08-18] MEDS: BUPIVACAINE 0.25% (PF) 30 ML, EPINEPHrine 0.15 MG INJ (14:00)
--- NOTE | 2022-08-18 15:15 | PM.OP.1 ---
Operative Date/Time/Diagnoses Date of procedure: 08/18/22 Time of procedure: 15:15 Pre-op diagnosis: Left shoulder glenohumeral arthritis Post-op diagnosis: same Procedure & Clinicians Procedure: Left reverse total shoulder arthroplasty Same procedure as scheduled: Yes Indications: Indications: This is a 67-year-old female who has left glenohumeral arthritis. Symptoms have been present for years, insidious onset. Patient has failed conservative therapy including injections, physical therapy, anti-inflammatories and activity modification. After extensive discussion in clinic, they wished to go forward with surgery. Risks and benefits were described including the risk of infection, bleeding, damage to internal structures including nerves. We also discussed the risk of failure of surgery and the need for revision surgery as well as the risk of anesthesia. The patient expressed understanding with these risks and wished to go forward with surgery. Surgeon: Juan Manuel Soria Health Information Systems Technician: Celena Montalvo Anesthesia Type: General Operative Notes Findings: Findings: Osteoarthritis of the glenoid and humeral head partially deficient rotator cuff as noted on preoperative imaging and under direct visualization Closure Type: primary Specimen(s): none sent Prosthetic devices, grafts, tissues, transplants, or devices: Tornier implants Base plate: standard 25 mm, full wedge Glenosphere: Standard 36 mm Stem: Perform 2+ Poly: +0 concentric Estimated Blood Loss (mL): 50 Blood products transfused: none Procedure in detail: Operative note: Patient was seen in the preoperative holding unit. The correct left shoulder was identified and marked with my initials. Again we discussed the risks and benefits of surgery and they wished to go forward with surgery. The patient was brought back to the operating room and placed supine on the operating table. Smooth endotracheal intubation was performed by anesthesia. All prominences were padded and they were placed into the beach chair position. Intravenous antibiotics were given. The left shoulder was then prepped with the standard sterile preparation and draping. A time-out was then performed in my initials were again identified on the correct shoulder. 1 g of IV tranexamic acid was given. A standard deltopectoral incision was made. Skin flaps were made. The cephalic vein was identified and retracted laterally. This was protected throughout the remainder of the case. Sharp dissection was made along the deltoid, subacromial and subcoracoid space to release adhesions. The conjoined tendon was identified and the axillary nerve was palpated and continuous using the tug test. It was protected throughout the remainder of the case. A brown retractor was placed underneath the deltoid muscle and a darach retractor underneath the conjoint tendon. The anterior circumflex artery and associated veins on the lower border of the subscapularis were identified and tied off using 0-Vicryl. The biceps tendon was identified in the bicipital groove. This was released from its sheath, and taken from its origin on the glenoid and tied into the pectoralis tendon for a solid tenodesis. We then began a subscapularis peel. The subscapularis was tagged with an Ethibond suture. A 360 degree circumferential release of the subscapularis was performed with protection of the axillary nerve. The coracohumeral ligament was released at the base of the coracoid. The coracoacromial ligament was left intact. The shoulder was then dislocated. Osteophytes were removed using combination of rongeur and osteotome. The rotator cuff was noted to be intact but partially torn at the supraspinatus. An intramedullary guide was used set at version of 30?. Using an oscillating saw a conservative humeral head cut was made. Impaction reamers were reamed up to a size 2 stem with a built-in angle 135?. A neck protector was placed. Attention was then turned to the glenoid. After retracting the humeral head posteriorly a circumferential release was performed of the capsule with protection of the axillary nerve. The labrum was then released starting at the biceps anchor and going around the rim a small amount of triceps was released from the inferior glenoid. A center guide pin was then placed using the guide, followed by Reamer. After adequate cartilage was removed the center drill hole was drilled and measured. The base plate was then implanted and screwed into place. The superior drill hole was drilled and filled in a nonlocking fashion, followed by the inferior and anterior holes in locking fashion, the posterior hole was also filled. A 36 standard glenosphere was then selected and screwed into place onto the base plate. Turning back to the humerus, the humeral head was delivered and trialed with a 0 concentric. The arm was taken through range of motion and this was felt to be stable. The trial was then removed and a dilute Betadine wash was then performed with 1 L of sterile saline. Before placing the final implant, drill holes were made in the bicipital groove for the subscapularis repair, and sutures were passed through the drill holes. The final stem with high offset tray was then impacted into the humerus. The shoulder was then reduced and again brought through range of motion and was felt to be stable. The interval was then closed using #2 Ethibond. The subscapularis was then repaired using a modified racking hitch with nice loupes. The deltopectoral interval was then closed with #2 Ethibond. The skin was closed with 2-0 PDS and Monocryl followed by Aquacel dressing. Patient was awoken from anesthesia and brought back to the postoperative recovery unit without issue. They were placed into a sling. Assisting participation: This operation could not have been safely performed (without compromising the technical results or length of the procedure) without the assistance of a skilled instructor adjunct surgical technician. The instructor adjunct surgical technician was medically necessary for proper positioning, retraction and manipulation of instruments, proper exposure, graft prep, and manipulation of tissue. Complications: none Post-operative Condition: stable Disposition: PACU Plan for aftercare: Postoperative instructions: Sling to remain on for 6 weeks. No external rotation past neutral for 6 weeks. Okay for him to come off her shower. Okay to shower over the Aquacel dressing. If any water gets underneath the dressing, remove the dressing. First postoperative visit in 2 weeks.
--- NOTE | 2022-08-18 16:16 | DI.RAD.S_ITS ---
PROCEDURE: XR SHOULDER LT 1V INDICATIONS: postop TECHNIQUE: 1 views of the shoulder were acquired. COMPARISON: None. FINDINGS: Bones: Patient is status post reverse left shoulder arthroplasty. Shoulder alignment is anatomic. No suspicious bony lesions. Visualized ribs appear intact. Soft tissues: Expected postsurgical changes are seen in superior left shoulder soft tissue. IMPRESSION: Postop changes from reverse left shoulder arthroplasty with anatomic shoulder alignment. Dictated by: Ras Varela M.D. on 08/18/2022 at 15:44 Approved by: Ras Varela M.D. on 08/18/2022 at 15:45
--- NOTE | 2022-08-18 16:30 | PT-IP ANOTE ---
Physical therapy evaluation order received and chart reviewed. Spoke with pt who feels like she is still trying to wake up from surgery. She does not feel ready to get up yet. Pt lives alone at home and does not have anyone to assist her at discharge. She plans to take a taxi to the [employer], walk on the [employer] then have a friend pick her up on [facility] at discharge. Will plan to see her for evaluation tomorrow.
[2022-08-18] MEDS: IBUPROFEN 400 MG TABLET 800 MG PO (16:48)
[2022-08-18] MEDS: OXYCODONE IR 5 MG TABLET PO ×2 (16:49→22:56)
--- NOTE | 2022-08-18 19:13 | PC.NURSE ---
Pt arrived from PACU at 1600 A&OX4. VSS, afebrile weaned to RA 96%. Slightly hypotensive 90's/50's, asymptomatic. Encourage to drink po fluid. Reports L hand numb but +pulses+2 and able to wiggle fingers. Aquacel intact c/d. L arm in shoulder sling. She tolerates dinner well and denies n/v. SCD's in place, call light in reach. Pt using IS this evening reachin 1,000. She reports pain to R shoulder 5-6/10 from arthritis. She is due to void by 2100, endorsed to oncoming RN.
[2022-08-18] MEDS: ASPIRIN EC 81 MG TABLET PO (20:19)
[2022-08-18] MEDS: DOCUSATE 100 MG CAPSULE PO (20:19)
[2022-08-18] MEDS: LEVOTHYROXINE 100 MCG TABLET 200 MCG PO (20:19)
[2022-08-18] MEDS: SODIUM CHLORIDE 0.9% FLUSH 10 ML IV (21:56)
[2022-08-18] MEDS: QUETIAPINE 100 MG TABLET 600 MG PO (21:58)
[2022-08-18] MEDS: SODIUM CHLORIDE 0.9% 250 ML 21 ML IV (21:59)
[2022-08-19] MEDS: SODIUM CHLORIDE 0.9% FLUSH 10 ML IV ×4 (01:48→12:01)
[2022-08-19] MEDS: MORPHINE 2 MG/ML INJ 1.5 MG IV (01:49)
[2022-08-19] MEDS: IBUPROFEN 400 MG TABLET 800 MG PO ×2 (02:10→09:35)
--- NOTE | 2022-08-19 02:39 | PC.NURSE ---
Pt. reported nerve block is not working, it wears off. Pain level is up to 10/10, medciated with 1.5 mg. of Morphine IVP & 800 mg. of Ibuprofen. Ice pack reapplied, pt. stated we will wait until 0300 see if all those meds. work & you can my doctor if I'm still in pain. Will monitor.
--- NOTE | 2022-08-19 03:10 | CM.MNRNOTE ---
Notified production utility worker MD via answering service to report patient C/O pain. Awaiting call back.
[2022-08-19 03:15] VITALS: BP 123/67; PULSE 75; RESP 18; TEMP 36.8; O2SAT 94
--- NOTE | 2022-08-19 03:20 | PC.NURSE ---
Dr. Atkinson called back ordered to give 10 mg. of Oxycodone for pain level 7-10 & 0.5 mg. of Dilaudid IVP Q1H for breakthrough pain.
[2022-08-19] MEDS: OXYCODONE IR 10 MG TABLET PO ×3 (03:28→13:54)
[2022-08-19] MEDS: CEFAZOLIN 2 GM/100 ML PREMIX 100 ML IV (05:17)
[2022-08-19 07:14] LABS: Hematocrit 32.3 % (36-46); Mean Corpuscular HGB Conc 34.1 % (30-36); Mean Corpuscular Hemoglobin 32.4 PG (26-34); Platelet Count 225 X10^3/uL (150-400); White Blood Cell Count 9.7 X10^3/uL (4.5-11.0)
--- NOTE | 2022-08-19 09:03 | PT.IIE ---
Current Diagnoses Primary osteoarthritis, left shoulder (08/18/22) Surgery Performed Operation Date: 08/18/22 12:15 Actual Procedures p Total Shoulder Arthroplasty reverse, with biceps tenodesis(Left) - Juan Manuel Soria MD Surgical History (Last Updated 07/26/22 @ 13:01 by Vanesa Hoover RN) History of 2 sections History of bilateral breast implants History of hysterectomy (~2004) History of left cataract extraction History of total left hip replacement (03/28/22) History of total replacement of right hip (03/01/21) Hx of chest tube placement (2008) Hx of tubal ligation (~1985) Medical History (Last Updated 03/15/22 @ 10:13 by Vanesa Hoover RN) Acid reflux ADD (attention deficit disorder) BCC (basal cell carcinoma), face Bilateral shoulder pain Bipolar disorder, mixed Hypothyroid Nerve damage (2008) Osteoarthritis Pneumonia (2008) PTSD (post-traumatic stress disorder) Retinal tear of left eye White coat syndrome without diagnosis of hypertension Physical Therapy Inpatient Evaluation/Re-Eval M1 PT/OT-IP Prior Functional Status Start: 08/19/22 09:03 Freq: NEEDED Status: Active Protocol: Document 08/19/22 09:03 DLM (Rec: 08/19/22 09:23 DL [id number]) Medical Review Prior Functional Status Medical History Reviewed Yes Diet/Fluid Consistency Regular Communication WNL, glasses Mobility and Gait Independent without device Activities of Daily Living and IADL's Independent Prior Functional Level (Other details) has small dogs at home Social History Household Members none Living Arrangements House Number of Floors (Floors) Two Floors Number of Stairs To Enter/Railing? 5 steps to enter with rail, can stay on main level, steps up to shower Home Environment High Toilet,Tub/Shower Home Equipment Front Wheel Walker,Quad Cane Additional Social History Comment She lives in a [place]. She has composting toilet, running water, washer/drum drier. She can recline her love seat at home. M2 PT-IP Current Condition Start: 08/19/22 09:03 Freq: NEEDED Status: Active Protocol: Document 08/19/22 09:03 DLM (Rec: 08/19/22 09:23 DL [id number]) Physical Therapy Current Condition Current Condition Evaluation Date 03/25/23 Treatment Diagnosis left total shoulder arthroplasty, pain Onset Date 08/18/22 M3 PT-IP Subjective Start: 08/19/22 09:03 Freq: NEEDED Status: Active Protocol: Document 08/19/22 09:03 DL (Rec: 08/19/22 09: DL [id number]) Subjective Physical Therapy Visit Type Type Initial Evaluation Visit Start Time 08:50 Visit Stop Time 09:03 Total Visit Minutes [address] INTERPRETER Visits 0 Physical Therapy Visit Comments Patient Comments She plans to go home alone. She wants to take a taxi to the [employer], walk on the [place] then have a friend pick her up on [facility] for ride home . She reports having severe left shoulder pain over night when the block wore off. Patient Goals discharge home Therapy Pain Assessment Pain When Pain Assessed During Mobility Pain Present Pain Present Pain Reported Location Left Shoulder Intensity 6 Scale Used Numeric (0 - 10) Description Aching,With Movement Pain Behaviors Guarding Pain Management Techniques Apply Cold,Re-positioning M4 PT-IP Mobility and Gait Start: 08/19/22 09:03 Freq: NEEDED Status: Active Protocol: Document 08/19/22 09:03 DLM (Rec: 08/19/22 09: DL [id number]) PT-Bed Mobility Assessment Supine to Sit Supine to Sit Standby Assistance,Bedrails Scooting Scooting to Edge of Bed Independent PT-Transfer Assessment Sit to and From Stand Sit to and from Stand Independent Equipment Transfer Assistive Device None Transfers Transfer Destination Bed,Toilet Transfer Technique Stand Step Pivot Transfer Ability Level of Assist Standby Assistance Comments Mobility Comments mild lateral instability during mobility, pt reports feeling very tired from not sleeping well Gait Assessment Gait Gait Assistance Required: Standby Assistance Distance (Feet) 110 Assistive Devices Assistive Device None Factors Limiting Gait Function Factors Limiting Gait Function Decreased Activity Tolerance, Decreased Strength,Limited Range of Motion,Pain Comments Gait Comments she demonstrates mild lateral instability during gait without device, she did brush left shoulder against wall 2-3 times even after cuing to attend to clearing left side, pt used toilet to urinate while up this visit, she was left sitting on edge of bed talking to ortho PA about her pain with call light close. Stair Climbing Assessment Comments Stair Climbing Comments she reports having too much pain at this time, was getting worse as she ambulated PT-Balance Assessment Sitting Balance and Reactions Static Sitting Balance Ability Normal Dynamic Sitting Balance Ability Normal Standing Balance and Reactions Static Standing Balance Ability Good Dynamic Standing Balance Ability Fair Device Used none M5 PT-IP Objective Assessments Start: 08/19/22 09:03 Freq: NEEDED Status: Active Protocol: Document 08/19/22 09:03 [facility] (Rec: 08/19/22 09:23 [facility] [id number]) Orientation Orientation/Cognition Level of Alertness Alert Orientation Name,Age,Birthday,Month,Date, Year,Day of Week,Place, Situation Language Function Ability No Deficits Noted Safety Awareness Understands Safety Issues Memory Description No Deficits Noted Comments she reports feeling very tired due to not sleeping well over night with pain issues Gross Range of Motion Upper Extremity ROM Assessment Left Impaired Impairments sling left UE, no functional movement of shoulder post-op, pt in too much pain to do elbow AROM, she is moving her fingers in the sling Lower Extremity ROM Assessment Within Functional Limits Strength Upper Extremity Strength Assessment Left Impaired Shoulder no functional use post-op Elbow too much shoulder pain to attempt moving Hand pt actively moving fingers in sling Lower Extremity Strength Assessment Within Functional Limits Coordination Assessment Gross Coordination Gross Coordination WNL Sensation Assessment Sensation Gross Sensation WNL Comments Sensation Comments she reports full feeling in left UE since block wore off Muscle Tone Muscle Tone WNL Yes M6 PT-IP Treatment Start: 08/19/22 09:03 Freq: NEEDED Status: Active Protocol: Document 08/19/22 09:03 [facility] (Rec: 08/19/22 09:23 [facility] [id number]) Physical Therapy Treatment Education Education Provided Precautions,Safety Other Treatments Other Treatment Performed initiated education about post -op TSA precautions, she reports she watched U-tube videos before surgery to help her prepare to do things one handed M7 PT-IP Assessment and Plan Start: 08/19/22 09:03 Freq: NEEDED Status: Active Protocol: Document 08/19/22 09:03 [facility] (Rec: 08/19/22 09:23 [facility] [id number]) PT Summary Assessment and Plan Potential Rehabilitation Potential Good Status of Condition at Evaluation Evolving Summary Impairments Pain,ROM,Strength,Balance,Bed Mobility,Transfers,Gait, Activity Tolerance Assessment Summary Saqib is sleepy and resting in bed this morning. She reports she is trying to get some sleep after having a bad night with severe shoulder pain. She reports being awake a lot last night due to pain. She was able to get out of bed , use the toilet to urinate and ambulate in the nagy this visit. She reports progressively increasing shoulder pain as she ambulated and wanted to go back to bed. Pt has not eaten breakfast yet. Ortho PA arrived this visit. Pt left sitting up with ortho PA. Pt's ability to participate in physical therapy was limited by her pain this visit. Will attempt a second visit today to complete stair training, gait training and ROM elbow/wrist/ hand. Pt has to feel well enough to walk on the [place] to get to [facility] at discharge. Goals Bed Mobility Goal Independent Transfer Goal Independent Gait Goal Independent Gait Distance 150 feet Other Goals up/down 5 steps with rail, independent Days to Meet Goals 2 Frequency of Treatment Frequency Of Treatment Twice a Day Treatment Plan Physical Therapy Treatment Plan Bed Mobility Training,Transfer Training,Gait Training, Therapeutic Exercise,Balance Retraining,Post Op Education, Discharge Planning,Hot or Cold Pack Precautions Shoulder Precautions Sling,No External Rotation, Pendulums Brace sling x 6 weeks, no active use left shoulder Other Precautions fall risk post-op Recommendations To Nursing Amount of Assist Needed Standby Assistance Discharge Recommendations PT Discharge Recommendations Home Other Discharge Recommendations she is not ready for discharge yet pt has no help at home, she reports she can call friends if needed Transportation Needs at Discharge Private Vehicle
--- NOTE | 2022-08-19 09:32 | P.DS_ITS ---
History of Present Illness History of Present Illness Date Patient Seen: 08/19/22 Time Patient Seen: 09:33 Chief complaint: shoulder pain Narrative: patient states her shoulder pain with severe overnight. Denies fever or chills. No nausea or vomiting. Discharge Providers Provider Date of admission: 08/18/22 08:52 Discharge Date: 08/19/22 Primary care physician: Duarte Beckwith MD Consults: 08/03/22 06:00 Consult to Anesthesiology Routine Comment: Consulting Provider: Anesthesiologist Reason for consultation: Regional block for post operative pain control 08/18/22 15:21 Consult to Discharge Planning Routine Comment: Consult to Physical Therapy Evaluate & Treat Comment: Physician Instructions: Evaluate and Treat Discharge provider: Kevyn Will PA-C Summary Hospital Course Discharge Diagnosis: Left shoulder glenohumeral arthritis Hospital Course: Left reverse total shoulder arthroplasty Same procedure as scheduled: Yes Indications: Indications:? This is a 67-year-old female who has left glenohumeral arthritis.? Symptoms have been present for years, insidious onset.? Patient has failed co nservative therapy including injections, physical therapy, anti-inflammatories and activity modification.? After extensive discussion in clinic, they wished to go forward with surgery.? Risks and benefits were described including the risk of infection, bleeding, damage to internal structures including nerves.? We also discussed the risk of failure of surgery and the need for revision surgery as we ll as the risk of anesthesia.? The patient expressed understanding with these risks and wished to go forward with surgery. Surgeon: Juan Manuel Soria Dry Cleaner Hand: Celena Montalvo Anesthesia Type: General Operative Notes Findings: Findings:? Osteoarthritis of the glenoid and humeral head partially deficient rotator cuff as noted on preoperative imaging and under direct visualization Closure Type: primary Specimen(s): none sent Prosthetic devices, grafts, tissues, transplants, or devices: Tornier implants Base plate:? standard 25 mm, full wedge Glenosphere:? Standard 36 mm Stem:? Perform 2+ Poly: +0 concentric Estimated Blood Loss (mL): 50 Blood products transfused: none patient admitted to the hospital for the above-mentioned procedure. Patient underwent left reverse total shoulder arthroplasty on August 18, 2022. Patient back in her room recovering well as in stable condition. We will continue to work on pain management. Patient will work with physical therapy. Sling to remain on for 6 weeks. No external rotation past neutral for 6 weeks. Follow up with Christiano [facility] in 2 weeks. discharge home today after physical therapy if safe for home environment. Exam Vital Signs (past 8 hours): - 08/19/22 03:15 Temperature 98.2 F Pulse Rate 75 Respiratory Rate 18 Blood Pressure 123/67 Pulse Oximetry 94 Oxygen Flow Rate 0 Oxygen Delivery Method Nasal Cannula Oxygen Flow Rate 0 Narrative Exam Narrative: 67-year-old female sitting at bedside in no apparent distress. Dressing is clean, dry and intact. Sling is in place. Motor functions intact distal left upper extremity. Sensation grossly intact to light touch distal Left upper extremity. Const General: cooperative, healthy appearing and comfortable Nutritional Appearance: well nourished Orientation: alert Resp Effort & Inspection: normal respiratory effort and able to speak in complete sentences Objective Labs 08/19/22 06:19 Labs: Laboratory Results - last 24 hr 08/18/22 08/19/22 10:00 06:19 WBC 9.7 RBC 3.40 L Hgb 11.0 L Hct 32.3 L MCV 95.0 MCH 32.4 MCHC 34.1 RDW 14.0 Plt Count 225 SARS-CoV-2 (PCR) Negative [facility] Medical History Acid reflux ADD (attention deficit disorder) BCC (basal cell carcinoma), face Bilateral shoulder pain Bipolar disorder, mixed Hypothyroid Nerve damage (2008) Osteoarthritis Pneumonia (2008) PTSD (post-traumatic stress disorder) Retinal tear of left eye White coat syndrome without diagnosis of hypertension Surgical History History of 2 sections History of bilateral breast implants History of hysterectomy (~2004) History of left cataract extraction History of total left hip replacement (03/28/22) History of total replacement of right hip (03/01/21) Hx of chest tube placement (2008) Hx of tubal ligation (~1985) Social History household members: none Smoking Status: Former smoker alcohol intake: former Discharge Assessment & Plan Assessment and Plan Assessment: Patient progressing as expected status post left reverse total shoulder arthroplasty Plan of Treatment: patient to work with physical therapy. Sling to remain on for 6 weeks. No external rotation past neutral for 6 weeks. Okay for sling to come off for shower. Multimodal pain management leave dressing in place until postop appointment follow-up with [facility] in 2 weeks discharge home today after physical therapy if safe for home environment. Discharge Plan Discharge Plan Patient Disposition: Home Discharge orders & Medications Prescriptions: New aspirin 81 mg Tablet,Delayed Release (Dr/Ec) 81 mg PO BID Qty: 60 0RF docusate sodium 100 mg Capsule 100 mg PO BID Qty: 20 0RF ondansetron 4 mg Tablet,Disintegrating 4 mg PO Q4HR PRN (Reason: Nausea And Vomiting) Qty: 10 0RF oxycodone 10 mg Tablet 10 mg PO Q3HR PRN (Reason: Pain, Severe (7-10)) Qty: 40 0RF acetaminophen [Tylenol] 325 mg capsule 650 mg PO Q6H PRN (Reason: pain) Qty: 60 0RF ibuprofen 400 mg tablet 400 mg PO Q6H Qty: 90 0RF Continued methylphenidate HCl 20 mg Tablet 20 mg PO BID omeprazole 20 mg Capsule,Delayed Release(Dr/Ec) 20 mg PO DAILY PRN (Reason: Acid Reflux) estradiol 2 mg Tablet 1 mg PO DAILY levothyroxine 200 mcg Capsule 200 mcg PO BEDTIME quetiapine 400 mg Tablet Extended Release 24 Hr 600 mg PO BEDTIME Discontinued ibuprofen 400 mg tablet 800 mg PO DAILY PRN (Reason: Pain) Follow up/Referrals: Juan Manuel Soria MD [Physician] - As previously scheduled (Follow up w/ Celena Montalvo PA-C, on 09/01/2022 @ 3:30 pm at [facility] in [place].) Duarte Beckwith MD [Primary Care Provider] - Diet/Activity/Treatments Diet: Diet as Tolerated Activity: Sling to remain on for 6 weeks. No external rotation past neutral for 6 weeks. Okay for sling to come off for shower. Cold/Heat Therapy: ice to shoulder as needed Skin/Wound/Dressing Care Report to your healthcare provider any signs of infection, such as:: chills, fever, night sweats, unusual drainage and unusual redness Dressing: May shower. Leave Aquacel dressing in place until follow up in office. Call the office if the dressing becomes saturated inside. Visit Report/Discharge Packet Instructions: DI for Prescription Opioid Use, DI for Shoulder Replacement Stand Alone Forms: Patient Portal/API, Stroke Signs & Symptoms, Surgery Discharge Discharge Data Primary Care Provider: Duarte Beckwith
[2022-08-19] MEDS: DOCUSATE 100 MG CAPSULE PO (09:34)
[2022-08-19] MEDS: ASPIRIN EC 81 MG TABLET PO (09:36)
[2022-08-19] MEDS: METHYLPHENIDATE 5 MG TABLET 20 MG PO (09:36)
[2022-08-19] MEDS: estradioL 1 MG TABLET PO (09:37)
[2022-08-19] MEDS: HYDROMORPHONE 0.5 MG INJ IV ×3 (09:37→13:54)
[2022-08-19 10:12] VITALS: BP 125/67; PULSE 80; RESP 16; TEMP 36.7; O2SAT 98
--- NOTE | 2022-08-19 11:45 | CM.DANOTE ---
DCP: Case received, EMR reviewed and met with patient. Introduced self and role. Was able to obtain information regarding patient's baseline activity level prior to surgery, as well as her current living situation. DCP assessment completed with information currently available. Patient came to the hospital for a surgical procedure. Patient had left reverse total shoulder arthroplasty. Patient has history of left shoulder glenohumeral arthritis. Met with patient in her room. Prior, had seen her walking in the hallway with P.T. She was sitting up on the edge of her bed, finishing her breakfast. Confirmed that she resides in [place], on [facility] alone. At her baseline, she is independent. She stated, she is having a lot of pain, does not feel that it is being managed with her current does, and that the provider was to speak to the nurse about the pain. Updated her nurse, she will be coming in the room. [place] and her friend is supposed to meet her on [place], upon discharge. P: Patient does have discharge orders, but uncertain if she will be ready secondary to pain issues. P.T. indicated concerns about her unsteadiness [place] the ferry. Will see if she stays another day, she is inpatient status. Elba Urias RN/Green Building Architect Discharge Planning/Care Management CM Discharge Assessment Start: 08/19/22 11:42 Freq: Status: Active Protocol: Document 08/19/22 11:42 (Rec: 08/19/22 11:45 [id number]) Discharge Planning Assessment Assigned Orthotic Technician Elba Urias RN/Green Building Architect Advance Directives? No Advance Directives on File No History Provided By Patient,Medical Record Prior Living Arrangements House Household Members none Type of transporation used prior to Drives own vehicle admit Independent with ADL's Yes Is patient alert and oriented? Yes Caregiver for Another No Patient/Family Preference OP PT Therapy Comment Lives alone, has neighbors checking on her. Patient resides on [address], [place], and neighbor meeting her when she is on [place]. Patient also having increased pain. Discharge Plan Home Transportation Arrangement Family/friend to provide transport. Referrals Initiated None needed Whiteboard Updated in Patient Room with Yes name and ext. # of Orthotic Technician Review Status In Process Next Review Type Continued Stay Review Pre-Anesthesia Assessment Start: 07/26/22 12:52 Freq: Status: Active Protocol: Document 07/26/22 12:52 [facility] (Rec: 07/26/22 13:17 [facility] [id number]) Pre-Anesthesia Assessment Patient Information Reviewed Via Phone Assessment Assessment Completed With Patient Diagnostic Results BMP/CMP,CBC,EKG,Urinalysis Comment Labs/EKG @ [facility] 07/10/22 Primary Care Provider Duarte Beckwith Seen Specialist in Last 12 Months Yes Specialist Seen Orthopedist Primary Language Hong Konger Preferred Language Hong Konger Lead Warehouse Associate Required No Height 5 ft 6.5 in Weight 208 lb Body Mass Index (BMI) 33.0 Hearing Ability Normal Visual Assist Glasses Dentition Type Partial- Upper & Lower Barriers to Learning None Hx Anesthesia Reactions No Hx Family Anesthesia Reaction No Hx Malignant Hyperthermia No Hx Blood Transfusions No Hx Blood Transfusion Reaction No Anesthesia Review Requested No alcohol intake former Alcohol Intake Frequency Other: 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 No Does patient have CORDOVA/SOB No Hx Sleep Apnea No CPAP/BIPAP use not prescribed Currently Taking a Beta Armin No Can You Climb a Flight of Stairs Without No SOB Hx Chest Pain No Hx SOB No Hx Syncope or Dizziness No Anti-Coagulant Therapy No Has a Shoeshiner No Cardiac Testing No Hx Pacemaker/ICD No Pacemaker Rep Required? No Cardiac Clearance Received No Diet Type At Home Regular Dysphagia No Gastrointestinal Symptoms Reflux Chronic UTI No Urinary Catheter Present No Hx Urinary Self Catheterization No Diabetes No Patient No Lactating No Hx Drug Resistant Organism No Presence of External or Internal Medical Yes: Breast implants, left eye Devices IOL, bilat hip prosthesis Have you had any close contact with No someone diagnosed with COVID-19? Received a COVID vaccine? Yes: Moderna Received all doses? Yes Marital Status Lives With none Comment Lives [place] [facility] Does the Patient Have Assistance After No Surgery Patient Discharge Plan Description Return Home Comment Pt advised overnight length of stay per surgeon Feels Safe in Current Environment Yes Been Physically Hurt or Threatened By a No Person in Current Environment Do you have thoughts of harming yourself None or others? Are you currently considering suicide? No Do you have a plan to hurt yourself or No Plan others? Do You Have Any Spiritual Beliefs That No May Affect Your HC Choices? Do You Have Any Cultural Practices That No May Affect Your HC Choices? Who Can We Speak to About Patient's Care Family, friends Identifying Code for Release of Patient Declines to issue Information Health Care Proxy/Next of Kin Rola De Luna ( Aunt) Health Care Proxy Emergency Contact Name Rola De Luna ( Aunt) Emergency Contact Advance Directives? No Advance Directives on File No Power of Sheet Rock Hanger No: Working on currently PAC Instructions Do not shave/clip surgical site,Durable medical equipment ,Medications to take/avoid, Nasal antibiotic,No ETOH/ petroleum product on skin DOS, NPO,Pre-surgical wash,Sensory aids,Sturdy shoes/comfortable clothes,Do not bring valuables and remove jewelry
--- NOTE | 2022-08-19 13:00 | PT.IPTN ---
Current Diagnoses Primary osteoarthritis, left shoulder (08/18/22) Surgery Performed Operation Date: 08/18/22 12:15 Actual Procedures p Total Shoulder Arthroplasty reverse, with biceps tenodesis(Left) - Juan Manuel Soria MD Physical Therapy Treatment Note M2 PT-IP Current Condition Start: 08/19/22 09:03 Freq: NEEDED Status: Active Protocol: Document 08/19/22 09:03 DLM (Rec: 08/19/22 09:23 DLM [id number]) Physical Therapy Current Condition Current Condition Evaluation Date 08/19/22 Treatment Diagnosis left total shoulder arthroplasty, pain Onset Date 08/18/22 M3 PT-IP Subjective Start: 08/19/22 09:03 Freq: NEEDED Status: Active Protocol: Document 08/19/22 13:25 TS (Rec: 08/19/22 13:48 TS [id number]) Subjective Physical Therapy Visit Type Type Treatment Note Visit Start Time 13:00 Visit Stop Time 13:20 Total Visit Minutes 20 Number of TECHNICIAN PREVENTATIVE MEDICINE Visits 1 Physical Therapy Visit Comments Patient Comments Pt reports pain has improved, she reports she is ready to discharge and is [place] 3:05 ferry. Patient Goals discharge home M4 PT-IP Mobility and Gait Start: 08/19/22 09:03 Freq: NEEDED Status: Active Protocol: Document 08/19/22 13:25 TS (Rec: 08/19/22 13:48 TS [id number]) PT-Transfer Assessment Sit to and From Stand Sit to and from Stand Independent Equipment Transfer Assistive Device None Comments Mobility Comments Pt found up ambulating independently in hallways and room, agreeable to PT session. She ambulated down hallway and back to room ~ 300' independently with normal gait pattern, some sideswaying. She performed stairs x6 with RUE handrail support independently step over step, no LOB or buckling of LE's. Educated pt on shoulder exercises(pendulum arm hang, scap retraction, elbow flex/ ext, wrsit flex/ext and pronation/supination). Pt donned and doffed shoulder sling independently. She was left in bed side chair, awaiting d/c. Gait Assessment Gait Gait Assistance Required: Standby Assistance Distance (Feet) 300 Assistive Devices Assistive Device None Comments Gait Comments See mobility comments. Stair Climbing Assessment Evaluation Level of Assist On Stairs Independent Devices Stair Climbing Assistive Devices None Technique/Endurance Stair Climbing Direction Ascend and Descend Stair Climbing Technique Step Over Step Number of Steps Climbed 6 Comments Stair Climbing Comments See mobility comments. PT-Balance Assessment Sitting Balance and Reactions Static Sitting Balance Ability Normal Dynamic Sitting Balance Ability Normal Standing Balance and Reactions Static Standing Balance Ability Normal Dynamic Standing Balance Ability Good Device Used none M5 PT-IP Objective Assessments Start: 08/19/22 09:03 Freq: NEEDED Status: Active Protocol: Document 08/19/22 09:03 [facility] (Rec: 08/19/22 09:23 [facility] [id number]) Orientation Orientation/Cognition Level of Alertness Alert Orientation Name,Age,Birthday,Month,Date, Year,Day of Week,Place, Situation Language Function Ability No Deficits Noted Safety Awareness Understands Safety Issues Memory Description No Deficits Noted Comments she reports feeling very tired due to not sleeping well over night with pain issues Gross Range of Motion Upper Extremity ROM Assessment Left Impaired Impairments sling left UE, no functional movement of shoulder post-op, pt in too much pain to do elbow AROM, she is moving her fingers in the sling Lower Extremity ROM Assessment Within Functional Limits Strength Upper Extremity Strength Assessment Left Impaired Shoulder no functional use post-op Elbow too much shoulder pain to attempt moving Hand pt actively moving fingers in sling Lower Extremity Strength Assessment Within Functional Limits Coordination Assessment Gross Coordination Gross Coordination WNL Sensation Assessment Sensation Gross Sensation WNL Comments Sensation Comments she reports full feeling in left UE since block wore off Muscle Tone Muscle Tone WNL Yes M6 PT-IP Treatment Start: 08/19/22 09:03 Freq: NEEDED Status: Active Protocol: Document 08/19/22 13:25 TS (Rec: 08/19/22 13:48 [id number]) Physical Therapy Treatment Education Education Provided Precautions,Safety Other Treatments Other Treatment Performed Provided education on intensity and frequency of post-op exercises. M7 PT-IP Assessment and Plan Start: 08/19/22 09:03 Freq: NEEDED Status: Active Protocol: Document 08/19/22 13:25 TS (Rec: 08/19/22 13:48 [id number]) PT Summary Assessment and Plan Potential Rehabilitation Potential Good Status of Condition at Evaluation Evolving Summary Impairments Pain,ROM,Strength,Balance,Bed Mobility,Transfers,Gait, Activity Tolerance Assessment Summary Pt found independently ambulating in hallways and room before PT session. She ambulated independently ~300' from room and back. She performed stairs with RUE handrail support IND with step over step gait. She was educated on proper frequency and intensity of post-op exercises and she has done her own research into this. She donned and doffed her shoulder sling independently. She is currently trying to be d/c so she can catch the 3:05PM ferry back home where she will walk on and have friend pick her up on other side. PT is recommending she return home and outpatient therapy when appropriate. Goals Bed Mobility Goal Independent Transfer Goal Independent Gait Goal Independent Gait Distance 150 feet Other Goals up/down 5 steps with rail, independent Days to Meet Goals 2 Frequency of Treatment Frequency Of Treatment Twice a Day Treatment Plan Physical Therapy Treatment Plan Bed Mobility Training,Transfer Training,Gait Training, Therapeutic Exercise,Balance Retraining,Post Op Education, Discharge Planning,Hot or Cold Pack Precautions Shoulder Precautions Sling,No External Rotation, Pendulums Brace sling x 6 weeks, no active use left shoulder Recommendations To Nursing Amount of Assist Needed Independent Discharge Recommendations PT Discharge Recommendations Home Other Discharge Recommendations Pt is anxious to d/c and to catch the 3:05PM ferry. Transportation Needs at Discharge Private Vehicle
[2022-08-19] MEDS: OXYCODONE IR 5 MG TABLET PO (13:33)
--- NOTE | 2022-08-19 14:03 | PC.NURSE ---
Pt discharged home. The pt is A&Ox4, able to make needs known, verbalized understanding of D/C instructions, when to follow up with PCP and surgeon, when to call surgeon's office, when to go to the closest ED for s/s of infection. Pt verbalized understanding of what s/s to watch fort that might indicate infection. Pt wheeled out to via W/C with DISHROOM ATTENDANT out to cab. Pt lives on [facility] and is walking on the ferry and her friend is picking her up on the other side. Pt has all of her belongings including cell phone, [employer]orer [employer], clothes, and discharge instructions, sling, glasses and shoes.
== END 2022-08-19 14:02 | disposition home or self-care (01) | DRG 483 ==
PROVIDERS: Admitting Provider Orthopaedic Surgery; PCP Family Medicine; Referring Provider Family Medicine; Visit Provider Orthopaedic Surgery
PROC: 0RRK00Z Replacement of Left Shoulder Joint with Reverse Ball and Socket Synthetic Substitute, Open Approach (ICD-10-PCS; CPT 23472; principal; 2022-08-18 12:15)
DX: M19.012 Primary osteoarthritis, left shoulder (principal); K21.9 Gastro-esophageal reflux disease without esophagitis; F98.8 Other specified behavioral and emotional disorders with onset usually occurring in childhood and adolescence; E03.9 Hypothyroidism, unspecified; Z20.822 Contact with and (suspected) exposure to COVID-19; Z87.891 Personal history of nicotine dependence
CPT/HCPCS: 36415; 73020; 85027; 87635; 97162; 97530; C1776; C9803; J0171; J0690; J1100; J1170; J2250; J2270; J2405; J2704; J3010

== ENCOUNTER → 2023-03-13 14:27 | Outpatient (CLI) | payer MEDICARE, SELFPAY ==
[2022-08-18 16:00] VITALS: BMI 33.0
--- NOTE | 2023-03-13 | DI.MG.S_ITS ---
BILATERAL DIGITAL SCREENING MAMMOGRAM 3D/2D WITH CAD WITH AUGMENTATION: 03/13/2023 CLINICAL: Routine screening. Family history of breast cancer. Comparison is made to exams dated: 03/09/2022 mammogram - [facility] and 02/16/2021 mammogram - outside facility. There are scattered areas of fibroglandular density in both breasts (category b / 25%-50% glandular tissue). Current study was also evaluated with a Computer Aided Detection (CAD) system. Bilateral breast implants are stable. No significant masses, calcifications, or other findings are seen in either breast. There has been no significant interval change. IMPRESSION: NEGATIVE There is no mammographic evidence of malignancy. A 1 year screening mammogram is recommended. Based on the Tyrer Cuzick model (a risk assessment model) the patient's lifetime risk is 6.9% and her 10 year risk is 3.8%. According to the ACR, ACS, and NCCN guidelines, an annual breast MRI exam along with mammogram is recommended if the patient's lifetime risk is 20% or greater. This exam was interpreted at Station ID: [id number]. NOTE: For mammograms, a report in lay terms will be sent to the patient. Approximately 15% of breast malignancies will not be visualized mammographically. In the management of a palpable breast mass, a negative mammogram must not discourage biopsy of a clinically suspicious lesion. Electronically Signed By: Brittaney curry/amarilys:03/13/2023 15:42:50 letter sent: Normal Exam ACR BI-RADS Category 1: Negative [id number]
--- NOTE | 2023-03-13 | DI.RAD.S_ITS ---
Bone Density Report Name: RHONDA MORALES Age: 67 Sex: Female Ethnicity: White Date of : 1955 Indication: postmenopausal; screening for osteoporosis; Referring Provider: MARVEL IVY Study: Bone densitometry was performed. Exam Date: March 13, 2023 Accession number: [id number] Bone Density: Region BMD T-score Z-score Classification AP Spine(L1-L4) 1.109 0.6 2.6 Normal Total Forearm (Left) 0.575 -0.1 1.8 Normal 1/3 Forearm (Left) 0.664 -0.5 1.5 Normal UD Forearm (Left) 0.441 0.0 1.4 Normal World Health Organization criteria for BMD impression classify patients as: Normal (T-score at or above -1.0), Osteopenia (T-score between -1.0 and -2.5), or Osteoporosis (T-score at or below -2.5). Previous Exams: -- Region Exam Age BMD T-score BMD Change BMD Change Date g/cm2 vs Baseline vs Previous -- AP Spine (L1-L4) 03/13/2023 67 1.109 0.6 0.005 (0.5%) 0.005 (0.5%) 03/09/2022 66 1.104 0.5 1/3 Forearm(Left) 03/13/2023 67 0.664 -0.5 -0.015 (-2.1%) -0.015 (-2.1%) 03/09/2022 66 0.679 -0.3 -- *Denotes significance at 95% confidence level, LSC for AP Spine = 0.022 g/cm2, LSC for 1/3 Forearm = 0.023 g/cm2 Impression: The patient has normal bone mass. No significant bone loss was observed. Discussion: LOW RISK OF FRACTURE; BONE DENSITY IS WELL ABOVE THE MINIMUM DESIRABLE LEVEL AND ABOVE AVERAGE FOR AGE AND SEX AT ALL SKELETAL SITES TESTED. This person's bone density is above expected limits for age and sex. This is rarely clinically significant, but should be pursued if there are significant musculoskeletal complaints. The patient should follow a healthful lifestyle (good nutrition with adequate calcium and vitamin D, and appropriate weight-bearing exercise). Follow-Up: Consider repeating this study in 5 years or sooner if there is some new clinical indication. Reported by: TAMELA VARGAS MD on 03/13/2023 3:43:00 PM.
== END ==
PROVIDERS: PCP Family Medicine; Referring Provider Family Medicine; Visit Provider Family Medicine
DX: Z12.31 Encounter for screening mammogram for malignant neoplasm of breast (principal); Z78.0 Asymptomatic menopausal state; M85.80 Other specified disorders of bone density and structure, unspecified site; Z80.3 Family history of malignant neoplasm of breast
CPT/HCPCS: 77063; 77067; 77080; 77081

== ENCOUNTER → 2023-05-02 12:01 | Outpatient (CLI) | payer MEDICARE, SELFPAY ==
[2022-08-18 16:00] VITALS: BMI 33.0
[2023-05-02 13:42] LABS: Add Manual Diff / Slide Review NO; Basophils Absolute Auto 0 /uL (0-100); Basophils Percent Auto 0.3 % (0-2); Eosinophils Absolute Auto 100 /uL (0-450); Eosinophils Percent Auto 1.8 % (2-4); Hematocrit 37.3 % (36-46); Hemoglobin 12.7 g/dL (12.0-16.0); Lymphocytes Absolute Auto 900 /uL (1100-4500); Lymphocytes Percent Auto 14.8 % (25-40); Mean Corpuscular HGB Conc 34.1 % (30-36); Mean Corpuscular Hemoglobin 33.7 PG (26-34); Mean Corpuscular Volume 98.8 fL (80-100); Monocytes Absolute Auto 200 /uL (0-900); Neutrophils Absolute Auto 5100 /uL (1500-7000); Neutrophils Percent Auto 80.1 % (50-75); Platelet Count 288 X10^3/uL (150-400); Red Blood Cell Count 3.77 X10^6/uL (4.0-5.2); Red Cell Distribution Width 12.7 % (11.6-14.8); White Blood Cell Count 6.4 X10^3/uL (4.5-11.0)
[2023-05-02 14:11] LABS: BUN Creatinine Ratio 15.1 (6-22); Blood Urea Nitrogen 13 mg/dL (7-17); Calcium 9.5 mg/dL (8.4-10.2); Carbon Dioxide 31 mmol/L (22-32); Chloride 100 mmol/L (98-107); Estimated Glomerular Filt Rate > 60 mL/min (>60); Glucose 115 mg/dL (80-110); HEMOLYSIS < 15 (0-50); Potassium 4.1 mmol/L (3.4-5.1); Sodium 137 mmol/L (137-145)
[2023-05-02 15:01] LABS: Appearance Urine UA CLEAR; Bilirubin Urine UA NEGATIVE (NEGATIVE); Color Urine UA YELLOW; Glucose Urine UA NEGATIVE (Negative); Ketones Urine UA NEGATIVE (NEGATIVE); Leukocyte Esterase Urine UA 2+ (NEGATIVE); Nitrite Urine UA NEGATIVE (Negative); Occult Blood Urine UA NEGATIVE (Negative); Protein Urine UA NEGATIVE (Negative); Urobilinogen Urine UA 0.2 E.U./dL (0.2)
[2023-05-02 15:08] LABS: Bacteria Urine Few (2-10); RBC Urine 0-1/HPF (0-5/HPF); Squamous Epithelial Cell Urine 0-1 /HPF (0-5/HPF); WBC Urine 5-10/HPF (0-5/HPF)
[2023-05-02 15:09] LABS: Amorphous Sediment Urine 1+; Culture Indicated Urine Specimen Cultured
== END ==
PROVIDERS: PCP Family Medicine; Referring Provider Orthopaedic Surgery; Visit Provider Orthopaedic Surgery
DX: Z01.818 Encounter for other preprocedural examination (principal); Z01.812 Encounter for preprocedural laboratory examination; N39.0 Urinary tract infection, site not specified
CPT/HCPCS: 36415; 80048; 81001; 85025; 87086; 93005

== ENCOUNTER → 2023-05-15 11:15 | Outpatient (CLI) | payer MEDICARE, SELFPAY ==
[2022-08-18 16:00] VITALS: BMI 33.0
--- NOTE | 2023-05-15 | DI.CT.S_ITS ---
PROCEDURE: CT UE RT WO CON INDICATIONS: OSTEOARTHRITIS, RT SHOULDER TECHNIQUE: Noncontrast 1-1.5 mm thick sections acquired from the acromioclavicular joint to the inferior scapula, with coronal and sagittal reformatting. COMPARISON: None. FINDINGS: Image quality: Excellent. Bones: Moderate acromioclavicular joint osteoarthritic changes are seen with joint space narrowing, subchondral sclerosis and downward osteophyte formation depressing the musculotendinous junction of supraspinatus. Moderate glenohumeral joint osteoarthritic changes also seen with joint space narrowing, subchondral sclerosis and cystic changes and inferior marginal osteophyte formation. There is no acute fracture or dislocation. No suspicious bony lesions. No gross abnormality is seen in visualized right ribs. Soft tissues: There is no full-thickness rotator cuff tendon rupture. No significant rotator cuff muscle atrophy is seen on sagittal views. No abnormal soft tissue calcifications. There is moderate amount of joint effusion and subacromial subdeltoid bursal fluid. No gross intra-articular loose bodies. The visualized right lung field is clear. IMPRESSION: 1. Moderate acromioclavicular joint and glenohumeral joint osteoarthritis. No shoulder fracture or dislocation. No suspicious bony lesions. 2. No full-thickness rotator cuff tendon rupture. No significant rotator cuff muscle atrophy. Small to moderate joint effusion and subacromial subdeltoid bursal fluid. No calcified intra-articular loose bodies. No abnormal soft tissue calcifications. Dictated by: Ras Varela M.D. on 05/15/2023 at 16:22 Approved by: Ras Varela M.D. on 05/15/2023 at 17:06
== END ==
PROVIDERS: PCP Family Medicine; Referring Provider Orthopaedic Surgery; Visit Provider Orthopaedic Surgery
DX: M19.011 Primary osteoarthritis, right shoulder (principal); M25.411 Effusion, right shoulder
CPT/HCPCS: 73200

== ENCOUNTER 2023-07-13 08:53 | Inpatient (IN) | payer MEDICARE, SELFPAY ==
[2022-08-18 16:00] VITALS: BMI 33.0
[2023-06-26 12:47] VITALS: BMI 32.1
[2023-07-13] VITALS (12 sets, daily range): BP systolic 110–130; BP diastolic 60–79; PULSE 6–72; RESP 14–143; TEMP 36.1–36.9; O2SAT 92–100; BMI 32.1
--- NOTE | 2023-07-13 06:00 | DI.RAD.S_ITS ---
PROCEDURE: XR SHOULDER RT MIN 2V INDICATIONS: TSA TECHNIQUE: 1 views of the shoulder were acquired. COMPARISON: None. FINDINGS: Bones: Single view of a total right shoulder arthroplasty shows prosthetic elements and appropriate alignment and position Right lung apex is clear. No bony fracture. Expected soft tissue postoperative findings Soft tissues: No suspicious soft tissue calcifications. IMPRESSION: Total left shoulder arthroplasty in good position Approved by: Main Lares M.D. on 07/13/2023 at 18:14
--- NOTE | 2023-07-13 09:42 | P.HP_ITS ---
History of Present Illness History of Present Illness Date Patient Seen: 07/13/23 Time Patient Seen: 09:42 Chief complaint: Right TSA Narrative: Patient is here today for a right reverse total shoulder arthroplasty that has been plan. She has had no changes in her symptoms and in fact symptoms have become worse over the past month. Denies any recent nausea, vomiting, diarrhea, fevers, chills or any other constitutional symptoms. No other complaints at this time. [facility] Medical History Bilateral shoulder pain PTSD (post-traumatic stress disorder) ADD (attention deficit disorder) Bipolar disorder, mixed BCC (basal cell carcinoma), face Osteoarthritis Hypothyroid Acid reflux White coat syndrome without diagnosis of hypertension Pneumonia (2008) Retinal tear of left eye Nerve damage (2008) Surgical History (Updated 06/26/23 @ 12:54 by Vanesa Hoover RN) History of reverse total replacement of left shoulder joint (08/18/22) History of total left hip replacement (03/28/22) History of total replacement of right hip (03/01/21) History of bilateral breast implants History of hysterectomy (~2004) History of 2 sections Hx of tubal ligation (~1985) Hx of chest tube placement (2008) History of left cataract extraction Social History household members: none Smoking Status: Former smoker alcohol intake: former Meds Home Medications and Allergies Home Medications Medication Instructions Recorded Confirmed Type estradiol 2 mg tablet 1 mg PO DAILY 02/22/21 07/13/23 History levothyroxine 200 mcg capsule 200 mcg PO DAILY 02/22/21 07/13/23 History methylphenidate HCl 20 mg tablet 20 mg PO BID Bipolar, ADD 02/22/21 07/13/23 History omeprazole 20 mg capsule,delayed 20 mg PO DAILY PRN Acid Reflux 02/22/21 07/13/23 History release quetiapine 400 mg tablet,extended 400 mg PO BEDTIME 08/02/22 07/13/23 History release 24 hr (Seroquel XR) lisinopril 10 mg tablet 15 mg PO DAILY 06/26/23 07/13/23 History Allergies Allergy/AdvReac Type Severity Reaction Status Date / Time Sulfa (Sulfonamide AdvReac Severe I get Verified 03/28/22 13:13 Antibiotics) delirious Review of Systems Review of Systems ROS: Yes All systems reviewed with the patient and are negative except as otherwise documented Exam Vital Signs (past 8 hours): - 07/13/23 09:31 Temperature 98.4 F Pulse Rate 65 Respiratory Rate 17 Blood Pressure 130/79 Pulse Oximetry 99 Oxygen Delivery Method Room Air Oxygen Delivery Method Room Air Narrative Exam Narrative: HEENT: Head atraumatic eyes anicteric moist mucous membranes Cardiovascular: Palpable peripheral pulses extremities are warm and well perfused Respiratory: Breathing comfortably on room air Psychiatric: Appropriate mood and affect Neuro: No acute deficits Musculoskeletal: Focused exam of the right upper extremity demonstrates limited range motion of the shoulder due to pain. Sensation intact to light touch in median, radial, ulnar, axillary nerve distribution. 2+ radial pulse with brisk capillary refill less than 2 seconds. Assessment & Plan Assessment & Plan narrative: Assessment: 68-year-old female here for right reverse total shoulder arthroplasty Plan: Plan to move ahead with right reverse total shoulder arthroplasty. Risks and benefits of surgery were discussed again including the risk of infection, damage to internal structures, bleeding, nerve injury, instability, need for revision surgery, blood clots, anesthesia and . No guarantees were made regarding outcomes. Patient expressed understanding and accepted these risks and wished to go forward with surgery and consent was signed.
[2023-07-13] MEDS: ACETAMINOPHEN 325 MG TABLET 975 MG PO (10:02)
[2023-07-13] MEDS: LACTATED RINGERS 1,000 ML 42 ML IV ×2 (10:04→13:06)
[2023-07-13] MEDS: FAMOTIDINE 20 MG/2 ML VIAL IV (10:11)
[2023-07-13] MEDS: CEFAZOLIN 2 GM/100 ML PREMIX 100 ML IV (10:39)
--- NOTE | 2023-07-13 11:12 | SUR.OPER ---
Beach chair on padded OR bed. Head on gel donut secured with tape over gauze. Non-operative arm secured <90 degrees abduction on padded arm board. Pillow under knees. Safety belt at thigh. Cloth tape over blanket over lower legs.
[2023-07-13] MEDS: TRANEXAMIC ACID 1,000 MG in SODIUM CHLORIDE 0.9% 100 ML 200 MG IV (11:27)
[2023-07-13] MEDS: ROPIVACAINE/EPI/CLONIDINE/KET 50 ML SYRINGE INJ (11:31)
--- NOTE | 2023-07-13 12:26 | PM.OP.1 ---
Operative Date/Time/Diagnoses Date of procedure: 07/13/23 Time of procedure: 12:27 Pre-op diagnosis: Right glenohumeral arthritis Post-op diagnosis: same Procedure & Clinicians Procedure: Right reverse total shoulder arthroplasty Same procedure as scheduled: Yes Indications: Indications: This is a 68-year-old female who has right glenohumeral arthritis. Symptoms have been present for years, insidious onset. Patient has failed conservative therapy including injections, physical therapy, anti-inflammatories and activity modification. After extensive discussion in clinic, they wished to go forward with surgery. Risks and benefits were described including the risk of infection, bleeding, damage to internal structures including nerves. We also discussed the risk of failure of surgery and the need for revision surgery as well as the risk of anesthesia. The patient expressed understanding with these risks and wished to go forward with surgery. Surgeon: Juan Manuel Soria Immigration Patrol Inspector: Angela Camarillo Operative Notes Findings: Findings: Osteoarthritis of the glenoid and humeral head with intact rotator cuff as noted on preoperative imaging and under direct visualization Closure Type: primary Specimen(s): none sent Prosthetic devices, grafts, tissues, transplants, or devices: Tornier implants Base plate: standard 25 mm, +3 mm offset Glenosphere: Standard 36 mm Stem: Perform 2+ Poly: +0 concentric Estimated Blood Loss (mL): 50 Blood products transfused: none Procedure in detail: Patient was seen in the preoperative holding unit. The correct right shoulder was identified and marked with my initials. Again we discussed the risks and benefits of surgery and they wished to go forward with surgery. The patient was brought back to the operating room and placed supine on the operating table. Smooth endotracheal intubation was performed by anesthesia. All prominences were padded and they were placed into the beach chair position. Intravenous antibiotics were given. The right shoulder was then prepped with the standard sterile preparation and draping. A time-out was then performed in my initials were again identified on the correct shoulder. 1 g of IV tranexamic acid was given. A standard deltopectoral incision was made. Skin flaps were made. The cephalic vein was identified and retracted laterally. This was protected throughout the remainder of the case. Sharp dissection was made along the deltoid, subacromial and subcoracoid space to release adhesions. The conjoined tendon was identified and the axillary nerve was palpated and continuous using the tug test. It was protected throughout the remainder of the case. A brown retractor was placed underneath the deltoid muscle and a darach retractor underneath the conjoint tendon. The anterior circumflex artery and associated veins on the lower border of the subscapularis were identified and tied off using 0-Vicryl. The biceps tendon was identified in the bicipital groove. This was released from its sheath, and taken from its origin on the glenoid and tied into the pectoralis tendon for a solid tenodesis. We then began a subscapularis peel. The subscapularis was tagged with an Ethibond suture. A 360 degree circumferential release of the subscapularis was performed with protection of the axillary nerve. The coracohumeral ligament was released at the base of the coracoid. The coracoacromial ligament was left intact. The shoulder was then dislocated. Osteophytes were removed using combination of rongeur and osteotome. The rotator cuff was noted to be intact. An intramedullary guide was used set at version of 30?. Using an oscillating saw a conservative humeral head cut was made. Impaction reamers were reamed up to a size 2 stem with a built-in angle 135?. A neck protector was placed. Attention was then turned to the glenoid. After retracting the humeral head posteriorly a circumferential release was performed of the capsule with protection of the axillary nerve. The labrum was then released starting at the biceps anchor and going around the rim a small amount of triceps was released from the inferior glenoid. A center guide pin was then placed using the guide, followed by Reamer. After adequate cartilage was removed the center drill hole was drilled and measured. The base plate was then implanted and screwed into place. The superior drill hole was drilled and filled in a nonlocking fashion, followed by the inferior and anterior holes in locking fashion, the posterior hole was also filled. A 36 standard glenosphere was then selected and screwed into place onto the base plate. Turning back to the humerus, the humeral head was delivered and trialed with a 0 concentric. The arm was taken through range of motion and this was felt to be stable. The trial was then removed and a dilute Betadine wash was then performed with 1 L of sterile saline. Before placing the final implant, drill holes were made in the bicipital groove for the subscapularis repair, and sutures were passed through the drill holes. The final stem was then impacted into the humerus. The shoulder was then reduced and again brought through range of motion and was felt to be stable. The interval was then closed using #2 Ethibond. The subscapularis was then repaired using a modified racking hitch with nice loupes. The deltopectoral interval was then closed with #2 Ethibond. The skin was closed with 2-0 Vicryl and Monocryl followed by Aquacel dressing. Patient was awoken from anesthesia and brought back to the postoperative recovery unit without issue. They were placed into a sling. Assisting participation: This operation could not have been safely performed (without compromising the technical results or length of the procedure) without the assistance of a skilled director surgical. The director surgical was medically necessary for proper positioning, retraction and manipulation of instruments, proper exposure, graft prep, and manipulation of tissue. Complications: none Post-operative Condition: stable Disposition: PACU Plan for aftercare: Postoperative instructions: Sling to remain on for 6 weeks. No external rotation past neutral for 6 weeks. Okay for the sling to come off for shower. Okay to shower over the Aquacel dressing. If any water gets underneath the dressing, remove the dressing. First postoperative visit in 2 weeks.
[2023-07-13] MEDS: ALBUTEROL 2.5 MG/3 ML NEB (ADULT) INH (13:03)
[2023-07-13] MEDS: OXYCODONE IR 5 MG TABLET PO ×2 (13:22→13:58)
[2023-07-13] MEDS: ONDANSETRON 4 MG/2 ML INJ IV (13:22)
== END 2023-07-13 16:10 | disposition home or self-care (01) | DRG 483 ==
PROVIDERS: Admitting Provider Orthopaedic Surgery; PCP Family Medicine; Referring Provider Family Medicine; Visit Provider Orthopaedic Surgery
PROC: 0RRJ00Z Replacement of Right Shoulder Joint with Reverse Ball and Socket Synthetic Substitute, Open Approach (ICD-10-PCS; CPT 23472; principal; 2023-07-13 10:15)
DX: M19.011 Primary osteoarthritis, right shoulder (principal)
CPT/HCPCS: 73030; C1776; J0690; J1100; J2250; J2405; J2704; J3010; J7613

== ENCOUNTER → 2024-04-22 12:17 | Outpatient (CLI) | payer MEDICARE, SELFPAY ==
[2022-08-18 16:00] VITALS: BMI 33.0
--- NOTE | 2024-04-22 12:20 | DI.MG.S_ITS ---
BILATERAL DIGITAL SCREENING MAMMOGRAM 3D/2D WITH CAD WITH AUGMENTATION: 04/22/2024 CLINICAL: Routine screening. Family history of breast cancer. Comparison is made to exams dated: 03/13/2023 mammogram, 03/09/2022 mammogram - [facility], and 02/16/2021 mammogram - outside facility. There are scattered areas of fibroglandular density (category b / 25%-50% glandular tissue). Current study was also evaluated with a Computer Aided Detection (CAD) system. Bilateral breast implants are stable. There is an asymmetry in the right breast middle depth superior region seen on the mediolateral oblique view only. No other significant masses, calcifications, or other findings are seen in either breast. IMPRESSION: INCOMPLETE: NEED ADDITIONAL IMAGING EVALUATION The asymmetry in the right breast is indeterminate. A diagnostic mammogram and ultrasound is recommended. Based on the Tyrer Cuzick model (a risk assessment model) the patient's lifetime risk is 6.4% and her 10 year risk is 3.8%. According to the ACR, ACS, and NCCN guidelines, an annual breast MRI exam along with mammogram is recommended if the patient's lifetime risk is 20% or greater. This exam was interpreted at Station ID: [id number]. NOTE: For mammograms, a report in lay terms will be sent to the patient. Approximately 15% of breast malignancies will not be visualized mammographically. In the management of a palpable breast mass, a negative mammogram must not discourage biopsy of a clinically suspicious lesion. Electronically Signed By: Gabriela Madrid M.D., Ph.D. eb/:04/23/2024 16:47:46 letter sent: Additional Imaging Needed ACR BI-RADS Category 0: Incomplete: Need Additional Imaging Evaluation
== END ==
LOC: MAMMO 12:20
PROVIDERS: PCP Family Medicine; Referring Provider Family Medicine; Visit Provider Family Medicine
DX: Z12.31 Encounter for screening mammogram for malignant neoplasm of breast (principal); Z80.3 Family history of malignant neoplasm of breast; Z98.82 Breast implant status
CPT/HCPCS: 77063; 77067

== ENCOUNTER → 2024-08-28 13:35 | Outpatient (CLI) | payer OTHER, SELFPAY ==
[2022-08-18 16:00] VITALS: BMI 33.0
--- NOTE | 2024-08-28 13:36 | DI.MG.S_ITS ---
MM diagnostic mammo unilat RT: 08/28/2024. BI-RADS: 1 CLINICAL: 69-year old female for right diagnostic mammogram. The patient presents for additional evaluation of an inconclusive screening mammogram - asymmetry. Tyrer-Cuzick lifetime risk of 5.7%. Current reported family history of breast cancer: sister. The patient has bilateral implants. PRIOR EXAMS 04/22/2024, 03/13/2023, 03/09/2022. MAMMOGRAPHY TECHNIQUE: 2D and 3D (tomosynthesis) digital mammographic views obtained, with additional images as needed for full coverage. Current study was also evaluated with a Computer Aided Detection (CAD) system. DENSITY Right: B. There are scattered areas of fibroglandular density. MAMMOGRAPHY FINDINGS Right: MLO only, Upper, Anterior depth: The previously seen asymmetry is less conspicuous with additional views, compatible with benign fibroglandular tissue. Findings now appear similar compared to the previous mammogram from 03/13/2023. No suspicious mass, asymmetry, microcalcification, or other abnormality seen. IMPRESSION: Right * No evidence of malignancy. RECOMMENDATIONS Bilateral * Annual screening mammography in eight months. COMMENTS: Findings and recommendations were conveyed to the patient during today's evaluation. OVERALL ASSESSMENT CATEGORY BI-RADS-1: Negative. The [employer] recommends annual screening mammography beginning at age 40 for women with average risk of breast cancer. ELECTRONICALLY SIGNED: Lidia Petersen M.D. on 08/28/2024 at 03:19:59 PM PT Interpreting Station ID: [id number]
== END ==
PROVIDERS: PCP Family Medicine; Referring Provider Family Medicine; Visit Provider Family Medicine
DX: R92.8 Other abnormal and inconclusive findings on diagnostic imaging of breast (principal); Z80.3 Family history of malignant neoplasm of breast; Z98.82 Breast implant status
CPT/HCPCS: 77065; G0279